=== PATIENT | male | born 1960 | race Caucasian/White ===

== ENCOUNTER 2020-07-23 06:17 | Day surgery (SDC) | payer OTHER, SELFPAY ==
[2020-07-19 10:36] VITALS: BMI 23.3
--- NOTE | 2020-07-22 08:38 | P.CONAN_ITS ---
Documented by User: Ginny Pinto 07/22/20 08:39 HPI - Anesthesia Eval Consult details Narrative: 60yo M for Colonoscopy [facility] Past Medical History Medical History Bronchitis Elevated cholesterol GERD (gastroesophageal reflux disease) History of bladder stone Hx of flexible sigmoidoscopy TIFFANI (obstructive sleep apnea) Pain in both feet Pain in both hands Surgical History Surgical History H/O colonoscopy History of bladder surgery History of orchiectomy History of prostate surgery Hx of appendectomy Hx of eye surgery Social History Social History Smoking Status: Never smoker Use of substances other than those prescribed or required for medical reasons: No Advance Directives Information Provided: No Recently lost weight without trying: No Meds Allergies Allergy/AdvReac Type Severity Reaction Status Date / Time Codeine Phosphate Allergy Severe Hallucinati Verified 07/19/20 10:51 ons meperidine [From Demerol] Allergy Severe Vomiting Verified 07/19/20 10:51 seasonal Allergy Intermediate Itchy Eyes Uncoded 07/19/20 10:51 Home Medications Medication Instructions Recorded Confirmed Type atorvastatin 1 tab PO BEDTIME 07/19/20 07/23/20 History hydrocortisone acetate 25 mg IN BID 07/19/20 07/23/20 History Exam Exam Date and Time: July 22, 2020 0838 Height,Weight and Vital Signs: Height 5 ft 6 in Weight 65.771 kg Pertinent Lab Results Pertinent Lab Results: Laboratory Tests 06/15/20 06/15/20 10:30 10:30 WBC 6.5 Hgb 14.3 Hct 41.8 L Plt Count 232 Sodium 141 Potassium 4.5 Chloride 104 BUN 11 Creatinine 0.86 Assessment and Plan Assessment Anesthesia Assessment: Chart Reviewed Documented by User: Brittany Finch 07/23/20 07:35 [facility] Past Medical History Medical History Bronchitis Elevated cholesterol GERD (gastroesophageal reflux disease) History of bladder stone Hx of flexible sigmoidoscopy TIFFANI (obstructive sleep apnea) Pain in both feet Pain in both hands Surgical History Surgical History H/O colonoscopy History of bladder surgery History of orchiectomy History of prostate surgery Hx of appendectomy Hx of eye surgery Social History Social History Smoking Status: Never smoker Use of substances other than those prescribed or required for medical reasons: No Advance Directives Information Provided: No Recently lost weight without trying: No Meds Allergies Allergy/AdvReac Type Severity Reaction Status Date / Time Codeine Phosphate Allergy Severe Hallucinati Verified 07/19/20 10:51 ons meperidine [From Demerol] Allergy Severe Vomiting Verified 07/19/20 10:51 seasonal Allergy Intermediate Itchy Eyes Uncoded 07/19/20 10:51 Home Medications Medication Instructions Recorded Confirmed Type atorvastatin 1 tab PO BEDTIME 07/19/20 07/23/20 History hydrocortisone acetate 25 mg IN BID 07/19/20 07/23/20 History Assessment and Plan Assessment Anesthesia Assessment: Anesthesia Plan Discussed and Chart Reviewed Final Anesthetic Review NPO: Yes ASA Class: I Final Preanesthetic Review: No Changes in Pt Med Stat, Meds/Allgs Chart Reviewed, Consent Obtained/Reviewed and Anes Risks/Benef Reviewed Patient Risk: Low Procedure Risk: Low Anesthetic Plan Anesthetic Plan: MAC: Disposition: Standard PACU
[2020-07-23 06:50] VITALS: BP 145/92; PULSE 86; RESP 20; TEMP 36.4; O2SAT 99
[2020-07-23] MEDS: Lactated Ringers 1,000 ML 100 ML IVCONT (06:56)
--- NOTE | 2020-07-23 07:35 | HO.ANESPROP2 ---
[facility] Past Medical History Medical History Bronchitis Elevated cholesterol GERD (gastroesophageal reflux disease) History of bladder stone Hx of flexible sigmoidoscopy TIFFANI (obstructive sleep apnea) Pain in both feet Pain in both hands Surgical History Surgical History H/O colonoscopy History of bladder surgery History of orchiectomy History of prostate surgery Hx of appendectomy Hx of eye surgery Social History Social History Smoking Status: Never smoker Use of substances other than those prescribed or required for medical reasons: No Advance Directives Information Provided: No Recently lost weight without trying: No Meds Allergies Allergy/AdvReac Type Severity Reaction Status Date / Time Codeine Phosphate Allergy Severe Hallucinati Verified 07/19/20 10:51 ons meperidine [From Demerol] Allergy Severe Vomiting Verified 07/19/20 10:51 seasonal Allergy Intermediate Itchy Eyes Uncoded 07/19/20 10:51 Home Medications Medication Instructions Recorded Confirmed Type atorvastatin 1 tab PO BEDTIME 07/19/20 07/23/20 History hydrocortisone acetate 25 mg NC BID 07/19/20 07/23/20 History Exam Exam Date and Time: July 23, 2020 0735 Height,Weight and Vital Signs: Height 5 ft 6 in Weight 65.771 kg Last Vital Signs Temp 97.6 F 07/23/20 06:50 Pulse 86 07/23/20 06:50 Resp 20 07/23/20 06:50 BP 145/92 H 07/23/20 06:50 Pulse Ox 99 07/23/20 06:50 Airway Mallampati Class: I TM Dist: >3cm Neck ROM: Full Heart: RRR Lungs: CTA
--- NOTE | 2020-07-23 07:43 | MHC.SHP ---
Pre-Procedural Eval Section A The patient is an INPATIENT: No The History & Physical has been completed within 30 days and I have reviewed it.: No Section B Chief Complaint: SCREENING Relevant Family History (Specify if Yes): Yes Relevant Social History: None Present Medications: see Short Stay Collaborative assessment Medical History: Significant History (Hyperlipemia. Bladder stone. Weak urinary stream. recurrent UTI. Bladder outlet obstruction. Foreign body in bladder. ) History of Previous Operations: Relevant previous surgery/procedure and date(s) (appendectomy testicle removal Bladder stone removal 2019 Laser of the prostate 2018 ) Allergies: Allergies Allergy/AdvReac Type Severity Reaction Status Date / Time Codeine Phosphate Allergy Severe Hallucinati Verified 07/19/20 10:51 ons meperidine [From Demerol] Allergy Severe Vomiting Verified 07/19/20 10:51 seasonal Allergy Intermediate Itchy Eyes Uncoded 07/19/20 10:51 Review of Systems Sugical H&P ROS: Negative: Constitution, Cardiovascular, Respiratory and Gastrointestinal Exam Surgical H&P Exam: Normal: Heart, Normal: Lungs, Normal: Extremities and Normal: Abdomen Plan Diagnosis/Plan: Unchanged Patient has been examined and remains a candidate for the planned procedure
--- NOTE | 2020-07-23 07:45 | PM.OP ---
Brief Operative Note Date of procedure: 07/23/20 Pre-op diagnosis: Colon cancer screening Post-op diagnosis: other (Colon polyp, hemorrhoids) Procedure: COLONOSCOPY TILL CECUM WITH BIOPSIES Consent: Indications for the procedure and potential complications of bleeding, perforation, reaction to medications and missed diagnosis were discussed with the patient and informed consent was obtained. Instrument: Olympus PCF H 190 L variable stiffness pediatric colonoscope Monitoring: Vital signs and clinical assessment, intermittent blood pressure monitoring, continuous EKG monitoring, Pulse oximetry and Carbon Dioxide monitoring were done throughout the procedure. Colon withdrawl time was 14 minutes. Procedure: The patient was placed in the left lateral decubitis position and pre-procedure medications were administered. After a digital rectal examination of the ano-rectum, the video colonoscope was inserted into the rectum and advanced through the colon to the cecum. The colonoscope was slowly withdrawn in a retrograde panoramic fashion and the colon mucosa was carefully examined including a retroflexed view of the rectum. Findings and interventions are described below. Procedure Difficulty: Colon was long and tortuous and there was loop formation. LLQ pressure applied to intubate the transverse colon Findings: Terminal Ileum: Not evaluated Cecum: Normal Ascending Colon: Normal Transverse Colon: A ? 4-5 mm polyp seen during intubation and not visualized during withdrawl. Descending Colon: Normal Sigmoid Colon: A 3-4 mm diminutive appearing polyp removed with a cold biopsy Rectum: Normal Ano-rectum: Moderate internal hemorrhoids Colon preparation: Excellent Impression and Post Procedure Diagnosis: Colonoscopy Findings: One small diminutive appearing polyp removed Moderate hemorrhoids on retroflexed exam. Plan: Await pathology results Repeat Colonoscopy interval based on path results - in 3-5 years if polyps is adenomatous and due to possibility of a missed polyp. Above findings were reviewed with the patient and colon polyps handout was given in the discharge area Surgeon: Zane Peñaloza MD Anesthesia: MAC (Dr Carlson) Non Licensed Nuclear Plant Operator: Tirso Boyer Estimated blood loss (mL): 0 Pathology: other (A Sigmoid colon polyp x 1) Condition: stable Disposition: PACU
[2020-07-23 08:29] VITALS: BP 125/80; PULSE 86; RESP 16; TEMP 36.7; O2SAT 98
[2020-07-23 08:44] VITALS: BP 136/90; PULSE 88; RESP 15; TEMP 36.8; O2SAT 99
--- NOTE | 2020-07-23 09:13 | HO.POSTANES ---
Post Anesthesia Evaluation Post Anesthesia Evaluation Vital Signs: Vital Signs Temp Pulse Resp BP Pulse Ox 07/23/20 08:44 98.2 F 88 15 136/90 H 99 07/23/20 08:29 98.1 F 86 16 125/80 98 07/23/20 06:50 97.6 F 86 20 145/92 H 99 Anesthesia: Monitored Mental Status: Awake Pain Control: Satisfactory Nausea/Vomiting: None Hydration: Adequate Anesthesia-Related Issues: No Anes. Related Issues
== END 2020-07-23 09:15 | disposition home or self-care (01) ==
PROVIDERS: PCP Nurse Practitioner Family; Visit Provider Internal Medicine Gastroenterology
PROC: 0DJD8ZZ Inspection of Lower Intestinal Tract, Via Natural or Artificial Opening Endoscopic (ICD-10-PCS; CPT 45378; principal; 2020-07-23 07:30)
DX: Z12.11 Encounter for screening for malignant neoplasm of colon (principal); K63.5 Polyp of colon; K57.30 Diverticulosis of large intestine without perforation or abscess without bleeding; K64.8 Other hemorrhoids; E78.00 Pure hypercholesterolemia, unspecified; E78.5 Hyperlipidemia, unspecified; Z79.899 Other long term (current) drug therapy; K21.9 Gastro-esophageal reflux disease without esophagitis
CPT/HCPCS: 45380; 88305; J0461

== ENCOUNTER 2021-05-24 08:15 | Outpatient (REF) | payer OTHER, SELFPAY ==
[2021-05-24 12:17] LABS: Appearance Urine CLEAR; Color Urine YELLOW; Glucose Urine UA NEG (NEG); Leukocyte Esterase Urine TRACE (NEG); Nitrite Urine NEG (NEG); Specific Gravity - Urine 1.025 (1.005-1.025); UACC Culture Trigger YES; Urine Blood NEG (NEG); Urine Ketones 5 MG/DL (NEG); Urine Protein NEG (NEG-TRACE)
[2021-05-24 12:21] LABS: Prostate Specific Antigen Scr 1.26 ng/mL (<0.05-4.0); TSH reflex Free T4 1.64 uIU/mL (0.32-4.0)
[2021-05-24 12:32] LABS: Alanine Aminotransferase 34 U/L (0-40); Albumin Level 4.7 g/dL (3.5-5.0); Alkaline Phosphatase 96 U/L (39-117); Anion Gap 15 (12-20); Aspartate Amino Transferase 39 U/L (5-37); Bilirubin Total 0.6 mg/dL (0.0-1.0); Blood Urea Nitrogen 10 mg/dL (9-16); Calcium 9.7 mg/dL (8.4-10.2); Carbon Dioxide 26 mmol/L (22-29); Chloride 104 mmol/L (96-108); Cholesterol 267 mg/dL; Estimated Glomerular Filt Rate > 60; Glucose Fasting 95 mg/dL (60-99); HDL Cholesterol 86 mg/dL; LDL Cholesterol Calculated 144 mg/dl; Potassium 4.2 mmol/L (3.3-5.1); Sodium 141 mmol/L (135-145); Total Protein 8.1 g/dL (6.5-8.0); Triglycerides 187 mg/dL
[2021-05-24 12:48] LABS: Bacteria Urine TRACE /LPF; Mucus Urine 1+ /LPF; RBC Urine 0 /HPF (0)
== END 2021-05-24 08:16 | disposition home or self-care (01) ==
LOC: HO.HMGCLDS 08:15
PROVIDERS: PCP Nurse Practitioner Family; Visit Provider Nurse Practitioner Family
DX: Z00.00 Encounter for general adult medical examination without abnormal findings (principal); Z12.5 Encounter for screening for malignant neoplasm of prostate
CPT/HCPCS: 36415; 80053; 80061; 81001; 81003; 84153; 84443; 87086

== ENCOUNTER 2021-06-14 12:17 | Outpatient (REF) | payer OTHER, SELFPAY ==
[2021-06-14 14:10] LABS: Appearance Urine CLEAR; Color Urine YELLOW; Glucose Urine UA NEG (NEG); Leukocyte Esterase Urine TRACE (NEG); Nitrite Urine NEG (NEG); PH 6.5 (5.0-8.0); UACC Culture Trigger YES; Urine Blood NEG (NEG); Urine Ketones NEG (NEG); Urine Protein NEG (NEG-TRACE)
[2021-06-14 14:40] LABS: Bacteria Urine TRACE /LPF; RBC Urine 0-2 /HPF (0); Squamous Epithelial Cell Urine 1+ /LPF
== END 2021-06-14 12:18 | disposition home or self-care (01) ==
LOC: HO.HMGCLDS 12:17
PROVIDERS: PCP Nurse Practitioner Family; Visit Provider Nurse Practitioner Family
DX: R82.90 Unspecified abnormal findings in urine (principal)
CPT/HCPCS: 81001; 81003; 87086

== ENCOUNTER 2022-06-28 10:29 | Outpatient (REF) | payer OTHER, SELFPAY ==
[2022-06-28 14:15] LABS: Appearance Urine Clear; Color Urine Yellow; Glucose Urine UA Negative (Negative); Leukocyte Esterase Urine Moderate (2+) (Negative); Nitrite Urine Negative (Negative); UMIC TRIGGER UACC YES; Urine Blood Negative (Negative); Urine Ketones Negative (Negative); Urine Protein Negative (Neg-Trace)
[2022-06-28 14:17] LABS: MANUAL DIFF FLAG NO
[2022-06-28 14:19] LABS: Basophils Absolute Auto 0.1 X10*3/uL (0.0-0.2); Basophils Percent Auto 1.2 % (0-2); Eosinophils Absolute Auto 0.3 X10*3/uL (0.0-0.4); Eosinophils Percent Auto 4.5 % (0-4); Hematocrit 43.8 % (42.0-52.0); Hemoglobin 14.7 g/dl (14.0-18.0); Imm Gran Abs Auto 0.02 X10*3/uL (0.00-0.03); Imm Gran Pct Auto 0.3 % (0.0-0.4); Lymphocytes Absolute Auto 2.5 X10*3/uL (1.2-4.9); Lymphocytes Percent Auto 36.9 % (20-40); Mean Corpuscular HGB Conc 33.6 g/dl (31.0-36.0); Mean Corpuscular Hemoglobin 29.6 pg (27.0-33.0); Mean Corpuscular Volume 88.1 fL (80.0-98.0); Mean Platelet Volume 9.7 fL (9.4-12.4); Monocytes Absolute Auto 0.7 X10*3/uL (0.1-1.2); Monocytes Percent Auto 10.5 % (2-11); Neutrophils Absolute Auto 3.1 x10*3/uL (2.0-8.3); Neutrophils Percent Auto 46.6 % (45-73); Platelet Count 251 X10*3/uL (160-400); Red Blood Count 4.97 X10*6/uL (4.60-5.80); Red Cell Distribution Width 12.1 % (11.0-16.0); White Blood Count 6.7 X10*3/uL (4.8-10.8)
[2022-06-28 14:20] LABS: Bacteria Urine None Seen (None Seen); Hyaline Casts Urine 0-2 /LPF (0-2); RBC Urine 0-2 /HPF (0-2); Squamous Epithelial Cell Urine 0-2 /HPF (0-2); UACC Culture Trigger YES; WBC Urine 21-50 /HPF (0-5)
[2022-06-28 14:44] LABS: Alanine Aminotransferase 20 U/L (0-40); Albumin Level 4.6 g/dL (3.5-5.0); Alkaline Phosphatase 68 U/L (39-117); Anion Gap 16 (12-20); Aspartate Amino Transferase 26 U/L (5-37); Bilirubin Total 0.5 mg/dL (0.0-1.0); Blood Urea Nitrogen 8 mg/dL (9-16); Calcium 9.9 mg/dL (8.4-10.2); Carbon Dioxide 28 mmol/L (22-29); Chloride 101 mmol/L (96-108); Cholesterol 234 mg/dL; Estimated Glomerular Filt Rate > 60; Glucose Fasting 94 mg/dL (60-99); HDL Cholesterol 83 mg/dL; LDL Cholesterol Calculated 132 mg/dl; Potassium 4.6 mmol/L (3.3-5.1); Sodium 140 mmol/L (135-145); Total Protein 7.6 g/dL (6.5-8.0); Triglycerides 97 mg/dL
[2022-06-28 15:06] LABS: Prostate Specific Antigen Scr 1.23 ng/mL (<0.05-4.0); TSH reflex Free T4 1.72 uIU/mL (0.32-4.0)
== END 2022-06-28 10:30 | disposition home or self-care (01) ==
LOC: HO.HMGCLDS 10:29
PROVIDERS: PCP Nurse Practitioner Family; Visit Provider Nurse Practitioner Family
DX: Z00.00 Encounter for general adult medical examination without abnormal findings (principal); Z12.5 Encounter for screening for malignant neoplasm of prostate
CPT/HCPCS: 36415; 80053; 80061; 81001; 84153; 84443; 85025; 87086

== ENCOUNTER 2022-08-16 11:41 | Emergency (ER) | payer OTHER, SELFPAY ==
--- NOTE | ~2022-08-16 | XR_ITS ---
EXAMINATION: XR CHEST CLINICAL INFORMATION: Chest pain COMPARISON: Chest x-ray 11/30/2018 TECHNIQUE: 2 views of the chest were obtained. FINDINGS: No significant abnormality is noted involving the heart, lungs, mediastinum, bony thorax or soft tissues. XR/XR chest 2V IMPRESSION: Unremarkable examination.
[2022-08-16 13:14] VITALS: BP 142/94; PULSE 109; RESP 16; TEMP 37.1; O2SAT 98; BMI 23.3
--- NOTE | 2022-08-16 13:29 | ED_ITS ---
HPI - URI/Sore Throat General Chief Complaint: Upper Respiratory Symptoms <Diogo Reynolds MD - Last Filed: 08/16/22 13:32> Stated Complaint: ? infection, coughing <Diogo Reynolds MD - Last Filed: 08/16/22 13:32> Time Seen by Provider: 08/16/22 16:01 <Diogo Reynolds MD - Last Filed: 08/16/22 13:32> Source: patient <TODD Bergman - Last Filed: 08/16/22 18:46> Mode of arrival: ambulatory <TODD Bergman - Last Filed: 08/16/22 18:46> Limitations: no limitations <TODD Bergman - Last Filed: 08/16/22 18:46> History of Present Illness HPI Narrative: 62 year old male hx of htn, pneumonia, high cholesterol presenting to the emergency department w/ fatigue, malaise, chest pressure, productive cough of thick yellow/green mucus x2 weeks. Symptoms unchanged, not improving. Reports he feels awful. Worse at night. Chest pressure to substernal region non radiating. Vague complaints of body aches. Cough very uncomfortable. Hasnt taken his temp at home. Denies sick contacts. Denies sob, green, dizziness, vision changes, weakness, nausea, diarrhea, constipaption, vomiting, abd pain. <TODD Bergman - Last Filed: 08/16/22 18:46> Related Data Home Medications: Home Medications Medication Instructions Recorded Confirmed hydrocortisone acetate 25 mg 25 mg [place] BID PRN 05/17/21 05/17/21 rectal suppository Previous Rx's Medication Instructions Recorded atorvastatin 20 mg tablet 20 mg PO DAILY #90 tabs 03/15/22 lisinopril 2.5 mg tablet 2.5 mg PO DAILY 30 days #30 tabs 05/18/22 albuterol sulfate 90 mcg/actuation 2 inh inhalation Q4-6H PRN 08/16/22 breath activated powder inhaler shortness of breath or wheezing #1 ea azithromycin 250 mg tablet See Rx Instructions PO .COMPLEX #6 08/16/22 tabs prednisone 20 mg tablet 40 mg PO DAILY 5 days #10 tabs 08/16/22 <Diogo Reynolds MD - Last Filed: 08/16/22 13:32> Allergies/Adverse Reactions: Allergies Allergy/AdvReac Type Severity Reaction Status Date / Time Codeine Phosphate Allergy Severe Hallucinati Verified 05/18/22 16:59 ons meperidine [From Demerol] Allergy Severe Vomiting Verified 05/18/22 16:59 seasonal Allergy Intermediate Itchy Eyes Uncoded 05/18/22 16:59 <Diogo Reynolds MD - Last Filed: 08/16/22 13:32> Review of Systems Review of Systems: Constitutional : No Weight loss, No Fever, No Chills, + Fatigue, + Malaise ENT/Mouth : No sore throat, No Rhinorrhea Eyes: No Eye Pain, No Swelling, No Redness Cardiovascular : + Chest Pain, No SOB, No Dyspnea on Exertion, No Orthopnea, No Edema, No Palpitations Respiratory : + Cough, + Sputum, No Wheezing Gastrointestinal : No Nausea, No Vomiting, No Diarrhea, No Constipation, No abdominal Pain, No Hematochezia, No Melena Genitourinary : No Dysuria, No Urinary Frequency, No Hematuria, Musculoskeletal : No joint pain, + Myalgias, No Joint Swelling Skin : No Skin Lesions, No rash Neuro : No Weakness, No Numbness, No Dizziness, No Headache Psych : No Anxiety/Panic, No Depression All other systems reviewed and are negative <TODD Bergman - Last Filed: 08/16/22 18:46> Yes all other systems are reviewed and are negative <TODD Bergman - Last Filed: 08/16/22 18:46> [facility] Past Medical History Attestation statement: The following information was validated with the patient. <TODD Bergman - Last Filed: 08/16/22 18:46> Source: old records reviewed and nursing notes reviewed <TODD Bergman - Last Filed: 08/16/22 18:46> Medical History: Medical History Bronchitis Elevated cholesterol GERD (gastroesophageal reflux disease) History of bladder stone Hx of flexible sigmoidoscopy TIFFANI (obstructive sleep apnea) Pain in both feet Pain in both hands <Diogo Reynolds MD - Last Filed: 08/16/22 13:32> Surgical History: Surgical History H/O colonoscopy History of bladder surgery History of orchiectomy History of prostate surgery Hx of appendectomy Hx of eye surgery <Diogo Reynolds MD - Last Filed: 08/16/22 13:32> Family History Family History: Family History Brother Substance use disorder Mental health disorder <Diogo Reynolds MD - Last Filed: 08/16/22 13:32> Social History Social History: Social History Housing: House Patient Tobacco Use Status: Never used Tobacco e-Cigarette/Vaping Use: Never Used Second Hand Smoke Exposure: No Advance Directives: No Advance Directives Information Provided: No service: No Current occupational status: retired Cognitive needs: No Hearing needs: No Vision needs: No <Diogo Reynolds MD - Last Filed: 08/16/22 13:32> Physical Exam Vital Signs: Vital Signs: Last Vital Signs Temp 98.8 F 08/16/22 13:14 Pulse 109 H 08/16/22 13:14 Resp 16 08/16/22 13:14 BP 142/94 H 08/16/22 13:14 Pulse Ox 98 08/16/22 13:14 O2 Del Method 08/16/22 13:14 BMI result Body Mass Index 23.3 <Diogo Reynolds MD - Last Filed: 08/16/22 13:32> Vital Signs: Last Vital Signs Temp 98.8 F 08/16/22 13:14 Pulse 109 H 08/16/22 13:14 Resp 16 08/16/22 13:14 BP 142/94 H 08/16/22 13:14 Pulse Ox 98 08/16/22 13:14 O2 Del Method 08/16/22 13:14 BMI result Body Mass Index 23.3 slightly tachycardic <TODD Bergman - Last Filed: 08/16/22 18:46> Appearance: Alert.? Oriented X3.? No acute distress.? Head: Normocephalic, atraumatic, no step-offs or deformities Eyes: Pupils equal, round and reactive to light.? Neck: Normal inspection.? Neck supple.? CVS: Normal heart rate and rhythm.? Pulses normal.? Respiratory: No respiratory distress.? Breath sounds w/ diffuse rhonchi .? Abdomen: Soft and nontender.? Skin: Skin warm and dry.? Normal skin color.? Normal skin turgor.? Extremities: No lower extremity edema.? No calf ttp, negative trae. 5/5 strength to bilateral upper and lower extremities Neuro: Oriented X 3.? No motor deficit.? No sensory deficit. CN 2-12 intact <TODD Bergman - Last Filed: 08/16/22 18:46> Course Course Course Narrative: RME: 62-year-old male history of pneumonia, high cholesterol, hypertension who presents emergency department for evaluation of 2 weeks of cough productive of thick yellow mucus and chills. He has also felt short of breath for 2 weeks. He states that since starting lisinopril he has had a cough but now the cough is worse. Vital signs revealed an elevated blood pressure 142/94 elevated pulse of 109. O2 sat and temperature were normal. Patient is awake alert no distress, HEENT exam was unremarkable, lungs revealed diffuse rhonchi, no wheezing rales, heart tachycardia with normal S1-S2, abdomen soft nontender extremities normal neurologic exam nonfocal. I ordered a chest x-ray two view, CBC, CMP, COVID-19 influenza. <Diogo Reynolds MD - Last Filed: 08/16/22 13:32> Reevaluation(s) Reevaluation #1: CBC w/ leukopenia suspected secondary to viral infection, monocyte predominance, NA of 131 will give 1 L IVF and recheck, no other electrolyte abnormalities. Influenza positive, sx > 48 hrs not tamiflu candidate. CXR wnl. Labs were obtained from triage. I ordered EKG and trop add on. <TODD Bergman - Last Filed: 08/16/22 18:46> Time: 16:09 <TODD Bergman - Last Filed: 08/16/22 18:46> Reevaluation #2: Repeat sodium 133, improvement after IV fluids. Patient feeling well, no new complaints. Not complaining of chest pain he did have a negative troponin and nonischemic EKG. Unlikely cardiac related chest pain. Chest pain likely secondary to cough. Will discharge patient home with prednisone, Z-Jose, albuterol inhaler. At this time I feel comfortable discharge home with prompt PCP follow-up. <TODD Bergman - Last Filed: 08/16/22 18:46> Time: 18:45 <TODD Bergman - Last Filed: 08/16/22 18:46> Medications Administered Discontinued Medications Generic Name Dose Route Start Last Admin Trade Name Freq PRN Reason Stop Dose Admin Sodium Chloride 1,000 mls @ 999 mls/hr 08/16/22 16:15 08/16/22 17:52 Ns IV 08/16/22 17:15 Infused .Q1H1M LINDA Infusion <Diogo Reynolds MD - Last Filed: 08/16/22 13:32> Medications Administered Discontinued Medications Generic Name Dose Route Start Last Admin Trade Name Freq PRN Reason Stop Dose Admin Sodium Chloride 1,000 mls @ 999 mls/hr 08/16/22 16:15 08/16/22 17:52 Ns IV 08/16/22 17:15 Infused .Q1H1M LINDA Infusion <TODD Bergman - Last Filed: 08/16/22 18:46> MDM - URI/Sore Throat MDM Narrative Medical decision making narrative: 1602 62 yo M presents w/ productive cough, fatigue, malaise, chest pressure X2 weeks worsening. PE w/ diffuse rhonchi, rapid regular rhythm, negative trae b/l. 98% on RA Likely viral infection or bacterial bronchitis based off symptom duration. Unlikley PNA, PE, ACS. Plan- basic labs, xray, ekg, viral panel <TODD Bergman - Last Filed: 08/16/22 18:46> Medical Records Attestation: I reviewed the patient's medical records. <TODD Bergman - Last Filed: 08/16/22 18:46> Lab Data Attestation: I reviewed the patient's lab results. <TODD Bergman - Last Filed: 08/16/22 18:46> Result diagrams: : 08/16/22 13:46 08/16/22 17:42 <Diogo Reynolds MD - Last Filed: 08/16/22 13:32> Labs: Lab Results 08/16/22 08/16/22 08/16/22 Range/Units 13:46 13:46 13:46 WBC 4.2 L (4.8-10.8) X10*3/uL RBC 4.40 L (4.60-5.80) X10*6/uL Hgb 13.0 L (14.0-18.0) g/dl Hct 38.2 L (42.0-52.0) % MCV 86.8 (80.0-98.0) fL MCH 29.5 (27.0-33.0) pg MCHC 34.0 (31.0-36.0) g/dl RDW 11.9 (11.0-16.0) % Plt Count 164 D (160-400) X10*3/uL MPV 8.8 L (9.4-12.4) fL Immature Gran % (Auto) 0.2 (0.0-0.4) % Neut % (Auto) 66.0 (45-73) % Lymph % (Auto) 13.5 L (20-40) % Calhoun % (Auto) 17.7 H (2-11) % Eos % (Auto) 1.4 (0-4) % Baso % (Auto) 1.2 (0-2) % Lymph # (Auto) 0.6 L (1.2-4.9) X10*3/uL Calhoun # (Auto) 0.8 (0.1-1.2) X10*3/uL Eos # (Auto) 0.1 (0.0-0.4) X10*3/uL Baso # (Auto) 0.1 (0.0-0.2) X10*3/uL Abs Immat Gran (auto) 0.01 (0.00-0.03) X10*3/uL Absolute Neuts (auto) 2.8 (2.0-8.3) x10*3/uL Absolute Nucleated RBC 0.000 (0.0-0.012) X10*3/uL Nucleated RBC % (auto) 0.0 (0.0-0.2) /100WBC Sodium 131 L (135-145) mmol/L Potassium 3.6 D (3.3-5.1) mmol/L Chloride 95 L (96-108) mmol/L Carbon Dioxide 27 (22-29) mmol/L Anion Gap 13 (12-20) BUN 5 L (9-16) mg/dL Creatinine 0.85 (0.5-1.4) mg/dL Estim Creat Clear Calc 81.3 Estimated GFR > 60 Random Glucose 114 (60-115) mg/dL Calcium 9.6 (8.4-10.2) mg/dL Total Bilirubin 0.7 (0.0-1.0) mg/dL AST 26 (5-37) U/L ALT 19 (0-40) U/L Alkaline Phosphatase 86 (39-117) U/L Troponin I High Sens (<3.5-35.0) ng/L Total Protein 7.2 (6.5-8.0) g/dL Albumin 4.4 (3.5-5.0) g/dL COVID-19 (ELISSA) (Negative) COVID-19 Clin Com Influenza Type A (JAMILAH) Positive A (Negative) Influenza Type B (JAMILAH) Negative (Negative) Influenza A & B Note See Note 08/16/22 08/16/22 08/16/22 Range/Units 13:46 13:46 17:42 WBC (4.8-10.8) X10*3/uL RBC (4.60-5.80) X10*6/uL Hgb (14.0-18.0) g/dl Hct (42.0-52.0) % MCV (80.0-98.0) fL MCH (27.0-33.0) pg MCHC (31.0-36.0) g/dl RDW (11.0-16.0) % Plt Count (160-400) X10*3/uL MPV (9.4-12.4) fL Immature Gran % (Auto) (0.0-0.4) % Neut % (Auto) (45-73) % Lymph % (Auto) (20-40) % Calhoun % (Auto) (2-11) % Eos % (Auto) (0-4) % Baso % (Auto) (0-2) % Lymph # (Auto) (1.2-4.9) X10*3/uL Calhoun # (Auto) (0.1-1.2) X10*3/uL Eos # (Auto) (0.0-0.4) X10*3/uL Baso # (Auto) (0.0-0.2) X10*3/uL Abs Immat Gran (auto) (0.00-0.03) X10*3/uL Absolute Neuts (auto) (2.0-8.3) x10*3/uL Absolute Nucleated RBC (0.0-0.012) X10*3/uL Nucleated RBC % (auto) (0.0-0.2) /100WBC Sodium 133 L (135-145) mmol/L Potassium 3.7 (3.3-5.1) mmol/L Chloride 98 (96-108) mmol/L Carbon Dioxide 26 (22-29) mmol/L Anion Gap 13 (12-20) BUN 5 L (9-16) mg/dL Creatinine 0.78 (0.5-1.4) mg/dL Estim Creat Clear Calc 88.6 Estimated GFR > 60 Random Glucose 91 (60-115) mg/dL Calcium 8.9 D (8.4-10.2) mg/dL Total Bilirubin (0.0-1.0) mg/dL AST (5-37) U/L ALT (0-40) U/L Alkaline Phosphatase (39-117) U/L Troponin I High Sens < 3.5 (<3.5-35.0) ng/L Total Protein (6.5-8.0) g/dL Albumin (3.5-5.0) g/dL COVID-19 (ELISSA) Negative (Negative) COVID-19 Clin Com See Note Influenza Type A (JAMILAH) (Negative) Influenza Type B (JAMILAH) (Negative) Influenza A & B Note <Diogo Reynolds MD - Last Filed: 08/16/22 13:32> Lab Results 08/16/22 08/16/22 08/16/22 Range/Units 13:46 13:46 13:46 WBC 4.2 L (4.8-10.8) X10*3/uL RBC 4.40 L (4.60-5.80) X10*6/uL Hgb 13.0 L (14.0-18.0) g/dl Hct 38.2 L (42.0-52.0) % MCV 86.8 (80.0-98.0) fL MCH 29.5 (27.0-33.0) pg MCHC 34.0 (31.0-36.0) g/dl RDW 11.9 (11.0-16.0) % Plt Count 164 D (160-400) X10*3/uL MPV 8.8 L (9.4-12.4) fL Immature Gran % (Auto) 0.2 (0.0-0.4) % Neut % (Auto) 66.0 (45-73) % Lymph % (Auto) 13.5 L (20-40) % Calhoun % (Auto) 17.7 H (2-11) % Eos % (Auto) 1.4 (0-4) % Baso % (Auto) 1.2 (0-2) % Lymph # (Auto) 0.6 L (1.2-4.9) X10*3/uL Calhoun # (Auto) 0.8 (0.1-1.2) X10*3/uL Eos # (Auto) 0.1 (0.0-0.4) X10*3/uL Baso # (Auto) 0.1 (0.0-0.2) X10*3/uL Abs Immat Gran (auto) 0.01 (0.00-0.03) X10*3/uL Absolute Neuts (auto) 2.8 (2.0-8.3) x10*3/uL Absolute Nucleated RBC 0.000 (0.0-0.012) X10*3/uL Nucleated RBC % (auto) 0.0 (0.0-0.2) /100WBC Sodium 131 L (135-145) mmol/L Potassium 3.6 D (3.3-5.1) mmol/L Chloride 95 L (96-108) mmol/L Carbon Dioxide 27 (22-29) mmol/L Anion Gap 13 (12-20) BUN 5 L (9-16) mg/dL Creatinine 0.85 (0.5-1.4) mg/dL Estim Creat Clear Calc 81.3 Estimated GFR > 60 Random Glucose 114 (60-115) mg/dL Calcium 9.6 (8.4-10.2) mg/dL Total Bilirubin 0.7 (0.0-1.0) mg/dL AST 26 (5-37) U/L ALT 19 (0-40) U/L Alkaline Phosphatase 86 (39-117) U/L Troponin I High Sens (<3.5-35.0) ng/L Total Protein 7.2 (6.5-8.0) g/dL Albumin 4.4 (3.5-5.0) g/dL COVID-19 (ELISSA) (Negative) COVID-19 Clin Com Influenza Type A (JAMILAH) Positive A (Negative) Influenza Type B (JAMILAH) Negative (Negative) Influenza A & B Note See Note 08/16/22 08/16/22 08/16/22 Range/Units 13:46 13:46 17:42 WBC (4.8-10.8) X10*3/uL RBC (4.60-5.80) X10*6/uL Hgb (14.0-18.0) g/dl Hct (42.0-52.0) % MCV (80.0-98.0) fL MCH (27.0-33.0) pg MCHC (31.0-36.0) g/dl RDW (11.0-16.0) % Plt Count (160-400) X10*3/uL MPV (9.4-12.4) fL Immature Gran % (Auto) (0.0-0.4) % Neut % (Auto) (45-73) % Lymph % (Auto) (20-40) % Calhoun % (Auto) (2-11) % Eos % (Auto) (0-4) % Baso % (Auto) (0-2) % Lymph # (Auto) (1.2-4.9) X10*3/uL Calhoun # (Auto) (0.1-1.2) X10*3/uL Eos # (Auto) (0.0-0.4) X10*3/uL Baso # (Auto) (0.0-0.2) X10*3/uL Abs Immat Gran (auto) (0.00-0.03) X10*3/uL Absolute Neuts (auto) (2.0-8.3) x10*3/uL Absolute Nucleated RBC (0.0-0.012) X10*3/uL Nucleated RBC % (auto) (0.0-0.2) /100WBC Sodium 133 L (135-145) mmol/L Potassium 3.7 (3.3-5.1) mmol/L Chloride 98 (96-108) mmol/L Carbon Dioxide 26 (22-29) mmol/L Anion Gap 13 (12-20) BUN 5 L (9-16) mg/dL Creatinine 0.78 (0.5-1.4) mg/dL Estim Creat Clear Calc 88.6 Estimated GFR > 60 Random Glucose 91 (60-115) mg/dL Calcium 8.9 D (8.4-10.2) mg/dL Total Bilirubin (0.0-1.0) mg/dL AST (5-37) U/L ALT (0-40) U/L Alkaline Phosphatase (39-117) U/L Troponin I High Sens < 3.5 (<3.5-35.0) ng/L Total Protein (6.5-8.0) g/dL Albumin (3.5-5.0) g/dL COVID-19 (ELISSA) Negative (Negative) COVID-19 Clin Com See Note Influenza Type A (JAMILAH) (Negative) Influenza Type B (JAMILAH) (Negative) Influenza A & B Note <TODD Bergman - Last Filed: 08/16/22 18:46> Critical Care Time Critical Care Time Critical Care Time: No <TODD Bergman - Last Filed: 08/16/22 18:46> Discharge Plan Discharge Clinical Impression: Influenza, Bronchitis <Diogo Reynolds MD - Last Filed: 08/16/22 13:32> Patient Disposition: Home, Self-Care <Diogo Reynolds MD - Last Filed: 08/16/22 13:32> Instructions: Influenza (ED), Acute Bronchitis (ED) <Diogo Reynolds MD - Last Filed: 08/16/22 13:32> Additional Instructions: Take your medications as prescribed. If you were prescribed antibiotics today, it is important that you take your medication to their entirety, do not skip any doses, do not finish them early. Follow-up with your primary care provider this week. Return to the emergency department with new or worsening symptoms. Chest pain, shortness of breath, headache, dizziness, vision changes, weakness, fevers, chills, ect In case of emergency call 911 You are contagious! Practice good hygiene XR/XR chest 2V IMPRESSION: Unremarkable examination. <Diogo Reynolds MD - Last Filed: 08/16/22 13:32> Prescriptions: New azithromycin 250 mg tablet See Rx Instructions .ROUTE .COMPLEX Qty: 6 0RF Rx Instructions: For 250 mg dose pack: take 500 mg today (day 1), then 250 mg for 4 days (days 2-5) prednisone 20 mg tablet 40 mg PO DAILY 5 Days Qty: 10 0RF albuterol sulfate 90 mcg/actuation aerosol powdr breath activated 2 inh inhalation Q4-6H PRN (Reason: shortness of breath or wheezing) Qty: 1 0RF No Action atorvastatin 20 mg tablet 20 mg PO DAILY Qty: 90 1RF hydrocortisone acetate 25 mg suppository 25 mg [place] BID PRN lisinopril 2.5 mg tablet 2.5 mg PO DAILY 30 Days Qty: 30 3RF <Diogo Reynolds MD - Last Filed: 08/16/22 13:32> Referrals: [place] Ambriz, [employer]- [Primary Care Provider] - 2 days <Diogo Reynolds MD - Last Filed: 08/16/22 13:32> Stand Alone Forms: Work/School Release <Digoo Reynolds MD - Last Filed: 08/16/22 13:32>
[2022-08-16 13:51] LABS: MANUAL DIFF FLAG NO
[2022-08-16 13:52] LABS: Basophils Absolute Auto 0.1 X10*3/uL (0.0-0.2); Basophils Percent Auto 1.2 % (0-2); Eosinophils Absolute Auto 0.1 X10*3/uL (0.0-0.4); Eosinophils Percent Auto 1.4 % (0-4); Hematocrit 38.2 % (42.0-52.0); Imm Gran Abs Auto 0.01 X10*3/uL (0.00-0.03); Imm Gran Pct Auto 0.2 % (0.0-0.4); Lymphocytes Absolute Auto 0.6 X10*3/uL (1.2-4.9); Lymphocytes Percent Auto 13.5 % (20-40); Mean Corpuscular Hemoglobin 29.5 pg (27.0-33.0); Mean Corpuscular Volume 86.8 fL (80.0-98.0); Mean Platelet Volume 8.8 fL (9.4-12.4); Monocytes Absolute Auto 0.8 X10*3/uL (0.1-1.2); Monocytes Percent Auto 17.7 % (2-11); Neutrophils Absolute Auto 2.8 x10*3/uL (2.0-8.3); Platelet Count 164 X10*3/uL (160-400); Red Cell Distribution Width 11.9 % (11.0-16.0); White Blood Count 4.2 X10*3/uL (4.8-10.8)
[2022-08-16 14:07] LABS: COVID-19 Test Negative (Negative); IDNOW Serial# 16C4AD1C
[2022-08-16 14:08] LABS: IDNOW Serial# BCCEAD1C; Influenza A Positive (Negative); Influenza B2 Negative (Negative)
[2022-08-16 14:09] LABS: Alanine Aminotransferase 19 U/L (0-40); Albumin Level 4.4 g/dL (3.5-5.0); Alkaline Phosphatase 86 U/L (39-117); Anion Gap 13 (12-20); Aspartate Amino Transferase 26 U/L (5-37); Bilirubin Total 0.7 mg/dL (0.0-1.0); Blood Urea Nitrogen 5 mg/dL (9-16); Calcium 9.6 mg/dL (8.4-10.2); Carbon Dioxide 27 mmol/L (22-29); Chloride 95 mmol/L (96-108); Creatinine Clr Calc Pharmacy 81.3; Estimated Glomerular Filt Rate > 60; Glucose Random 114 mg/dL (60-115); Potassium 3.6 mmol/L (3.3-5.1); Sodium 131 mmol/L (135-145); Total Protein 7.2 g/dL (6.5-8.0)
--- NOTE | 2022-08-16 16:06 | ECG_ITS ---
Test Reason : CP Blood Pressure : / mmHG Vent. Rate : 087 BPM Atrial Rate : 087 BPM P-R Int : 148 ms QRS Dur : 072 ms QT Int : 342 ms P-R-T Axes : 049 027 042 degrees QTc Int : 411 ms Normal sinus rhythm Normal ECG When compared with ECG of 30-NOV-2018 14:41, No significant change was found Referred By: Jennifer Mendez Electronically Signed By:Wm Caceres
[2022-08-16] MEDS: 0.9 % Sodium Chloride 1,000 ML 999 ML IV (16:41)
[2022-08-16 17:04] LABS: Troponin-I High Sensitivity < 3.5 ng/L (<3.5-35.0)
[2022-08-16 18:07] LABS: Anion Gap 13 (12-20); Blood Urea Nitrogen 5 mg/dL (9-16); Calcium 8.9 mg/dL (8.4-10.2); Carbon Dioxide 26 mmol/L (22-29); Chloride 98 mmol/L (96-108); Creatinine Clr Calc Pharmacy 88.6; Estimated Glomerular Filt Rate > 60; Glucose Random 91 mg/dL (60-115); Potassium 3.7 mmol/L (3.3-5.1); Sodium 133 mmol/L (135-145)
--- NOTE | 2022-08-16 18:56 | PC.NURSE ---
Discharge instructions reviewed with pt. Pt verbalizes understanding.
== END 2022-08-16 18:56 | disposition home or self-care (01) ==
PROVIDERS: Emergency Medicine Emergency Medical Services; Physician Assistant; Emergency Provider Internal Medicine; PCP Nurse Practitioner Family
DX: J11.1 Influenza due to unidentified influenza virus with other respiratory manifestations (principal); J40 Bronchitis, not specified as acute or chronic; I10 Essential (primary) hypertension; E78.5 Hyperlipidemia, unspecified; Z79.02 Long term (current) use of antithrombotics/antiplatelets; Z79.899 Other long term (current) drug therapy; Z20.822 Contact with and (suspected) exposure to COVID-19
CPT/HCPCS: 36415; 71046; 80048; 80053; 84484; 85025; 87502; 87635; 93005; 96360; 99284

== ENCOUNTER 2022-11-17 12:38 | Outpatient (REF) | payer OTHER, SELFPAY ==
[2022-11-17 14:03] LABS: MANUAL DIFF FLAG NO
[2022-11-17 14:14] LABS: Appearance Urine Clear; Color Urine Yellow; Glucose Urine UA Negative (Negative); Leukocyte Esterase Urine Trace (Negative); Nitrite Urine Negative (Negative); PH 7.5 (5.0-9.0); UMIC TRIGGER UACC YES; Urine Blood Negative (Negative); Urine Ketones Negative (Negative); Urine Protein Negative (Neg-Trace)
[2022-11-17 14:20] LABS: Bacteria Urine None Seen (None Seen); Hyaline Casts Urine 0-2 /LPF (0-2); RBC Urine 0-2 /HPF (0-2); Squamous Epithelial Cell Urine 0-2 /HPF (0-2); WBC Urine 0-5 /HPF (0-5)
[2022-11-17 14:38] LABS: Basophils Absolute Auto 0.1 X10*3/uL (0.0-0.2); Basophils Percent Auto 1.4 % (0-2); Eosinophils Absolute Auto 0.3 X10*3/uL (0.0-0.4); Eosinophils Percent Auto 4.6 % (0-4); Hematocrit 43.7 % (42.0-52.0); Hemoglobin 14.6 g/dl (14.0-18.0); Imm Gran Abs Auto 0.02 X10*3/uL (0.00-0.03); Imm Gran Pct Auto 0.3 % (0.0-0.4); Lymphocytes Absolute Auto 2.4 X10*3/uL (1.2-4.9); Lymphocytes Percent Auto 33.7 % (20-40); Mean Corpuscular HGB Conc 33.4 g/dl (31.0-36.0); Mean Corpuscular Hemoglobin 29.3 pg (27.0-33.0); Mean Corpuscular Volume 87.8 fL (80.0-98.0); Mean Platelet Volume 10.2 fL (9.4-12.4); Monocytes Absolute Auto 0.8 X10*3/uL (0.1-1.2); Monocytes Percent Auto 10.8 % (2-11); Neutrophils Absolute Auto 3.6 x10*3/uL (2.0-8.3); Neutrophils Percent Auto 49.2 % (45-73); Platelet Count 227 X10*3/uL (160-400); Red Blood Count 4.98 X10*6/uL (4.60-5.80); Red Cell Distribution Width 12.3 % (11.0-16.0); White Blood Count 7.2 X10*3/uL (4.8-10.8)
[2022-11-17 15:13] LABS: Alanine Aminotransferase 26 U/L (0-40); Albumin Level 4.7 g/dL (3.5-5.0); Alkaline Phosphatase 98 U/L (39-117); Anion Gap 16 (12-20); Aspartate Amino Transferase 29 U/L (5-37); Bilirubin Total 0.6 mg/dL (0.0-1.0); Blood Urea Nitrogen 8 mg/dL (9-16); Calcium 9.8 mg/dL (8.4-10.2); Carbon Dioxide 27 mmol/L (22-29); Chloride 102 mmol/L (96-108); Estimated Glomerular Filt Rate > 60; Glucose Fasting 95 mg/dL (60-99); Potassium 4.5 mmol/L (3.3-5.1); Sodium 140 mmol/L (135-145); Total Protein 7.9 g/dL (6.5-8.0)
[2022-11-17 15:14] LABS: TSH reflex Free T4 1.54 uIU/mL (0.32-4.0)
== END 2022-11-17 12:39 | disposition home or self-care (01) ==
LOC: HO.HMGCLDS 12:38
PROVIDERS: PCP Nurse Practitioner Family; Visit Provider Nurse Practitioner Family
DX: I10 Essential (primary) hypertension (principal)
CPT/HCPCS: 36415; 80053; 81001; 84443; 85025

== ENCOUNTER 2023-02-19 10:30 | Outpatient (REF) | payer OTHER, SELFPAY ==
[2023-02-19 11:15] LABS: MANUAL DIFF FLAG NO
[2023-02-19 11:29] LABS: Basophils Absolute Auto 0.1 X10*3/uL (0.0-0.2); Basophils Percent Auto 1.3 % (0-2); Eosinophils Absolute Auto 0.2 X10*3/uL (0.0-0.4); Hematocrit 45.6 % (42.0-52.0); Hemoglobin 15.4 g/dl (14.0-18.0); Imm Gran Abs Auto 0.01 X10*3/uL (0.00-0.03); Imm Gran Pct Auto 0.2 % (0.0-0.4); Lymphocytes Absolute Auto 2.1 X10*3/uL (1.2-4.9); Lymphocytes Percent Auto 32.6 % (20-40); Mean Corpuscular HGB Conc 33.8 g/dl (31.0-36.0); Mean Corpuscular Volume 88.9 fL (80.0-98.0); Mean Platelet Volume 9.7 fL (9.4-12.4); Monocytes Absolute Auto 0.6 X10*3/uL (0.1-1.2); Monocytes Percent Auto 9.5 % (2-11); Neutrophils Absolute Auto 3.4 x10*3/uL (2.0-8.3); Neutrophils Percent Auto 53.4 % (45-73); Platelet Count 234 X10*3/uL (160-400); Red Blood Count 5.13 X10*6/uL (4.60-5.80); Red Cell Distribution Width 12.2 % (11.0-16.0); White Blood Count 6.3 X10*3/uL (4.8-10.8)
[2023-02-19 11:57] LABS: Alanine Aminotransferase 22 U/L (0-40); Albumin Level 4.9 g/dL (3.5-5.0); Alkaline Phosphatase 83 U/L (39-117); Anion Gap 14 (12-20); Aspartate Amino Transferase 28 U/L (5-37); Bilirubin Total 0.7 mg/dL (0.0-1.0); Blood Urea Nitrogen 7 mg/dL (9-16); Calcium 10.3 mg/dL (8.4-10.2); Carbon Dioxide 28 mmol/L (22-29); Chloride 104 mmol/L (96-108); Cholesterol 260 mg/dL; Estimated Glomerular Filt Rate > 60; Glucose Fasting 93 mg/dL (60-99); HDL Cholesterol 92 mg/dL; LDL Cholesterol Calculated 148 mg/dl; Potassium 4.8 mmol/L (3.3-5.1); Sodium 141 mmol/L (135-145); Total Protein 8.3 g/dL (6.5-8.0); Triglycerides 104 mg/dL
[2023-02-19 12:20] LABS: TSH reflex Free T4 1.63 uIU/mL (0.32-4.0)
[2023-02-19 14:03] LABS: Appearance Urine Clear; Color Urine Yellow; Glucose Urine UA Negative (Negative); Leukocyte Esterase Urine Moderate (2+) (Negative); Nitrite Urine Negative (Negative); PH 5.5 (5.0-9.0); Specific Gravity - Urine 1.015 (1.005-1.025); UMIC TRIGGER UACC YES; Urine Blood Negative (Negative); Urine Ketones Negative (Negative); Urine Protein Negative (Neg-Trace)
[2023-02-19 14:09] LABS: Bacteria Urine Trace (None Seen); Hyaline Casts Urine 0-2 /LPF (0-2); RBC Urine 0-2 /HPF (0-2); Squamous Epithelial Cell Urine 0-2 /HPF (0-2); UACC Culture Trigger YES
== END 2023-02-19 10:31 | disposition home or self-care (01) ==
LOC: HO.HMGCLDS 10:30
PROVIDERS: PCP Nurse Practitioner Family; Visit Provider Nurse Practitioner Family
DX: I10 Essential (primary) hypertension (principal); E83.52 Hypercalcemia; R82.90 Unspecified abnormal findings in urine
CPT/HCPCS: 36415; 80053; 80061; 81001; 81003; 84443; 85025; 87086; 87088; 87186

== ENCOUNTER 2023-02-21 11:42 | Outpatient (REF) | payer OTHER, SELFPAY ==
[2023-02-21 14:06] LABS: Appearance Urine Clear; Color Urine Yellow; Glucose Urine UA Negative (Negative); Leukocyte Esterase Urine Small (1+) (Negative); Nitrite Urine Negative (Negative); UMIC TRIGGER UACC YES; Urine Blood Negative (Negative); Urine Ketones Negative (Negative); Urine Protein Negative (Neg-Trace)
[2023-02-21 14:09] LABS: Bacteria Urine None Seen (None Seen); Hyaline Casts Urine 0-2 /LPF (0-2); RBC Urine 0-2 /HPF (0-2); Squamous Epithelial Cell Urine 0-2 /HPF (0-2); UACC Culture Trigger YES
[2023-02-21 14:39] LABS: Vitamin D 25-OH Total 13.4 ng/mL (>30)
[2023-02-22 22:24] LABS: Calcium (PTHI) 10.1 mg/dL (8.6-10.3); PTHI 47 pg/mL (16-77)
[2023-02-24 22:04] LABS: Calcium, Ionized 5.1 mg/dL (4.7-5.5)
== END 2023-02-21 11:43 | disposition home or self-care (01) ==
LOC: HO.HMGCLDS 11:42
PROVIDERS: PCP Nurse Practitioner Family; Visit Provider Nurse Practitioner Family
DX: E83.52 Hypercalcemia (principal); I10 Essential (primary) hypertension; R82.90 Unspecified abnormal findings in urine
CPT/HCPCS: 36415; 81001; 81003; 82306; 82330; 83970; 87086; 87088; 87186

== ENCOUNTER 2023-06-16 09:25 | Outpatient (REF) | payer OTHER, SELFPAY ==
[2023-06-16 11:45] LABS: Alanine Aminotransferase 29 U/L (0-40); Albumin Level 4.3 g/dL (3.5-5.0); Alkaline Phosphatase 75 U/L (39-117); Anion Gap 13 (12-20); Aspartate Amino Transferase 38 U/L (5-37); Bilirubin Total 0.4 mg/dL (0.0-1.0); Blood Urea Nitrogen 8 mg/dL (9-16); Calcium 9.8 mg/dL (8.4-10.2); Carbon Dioxide 29 mmol/L (22-29); Chloride 103 mmol/L (96-108); Cholesterol 205 mg/dL (<200); Estimated Glomerular Filt Rate > 60; Glucose Fasting 94 mg/dL (60-99); HDL Cholesterol 78 mg/dL (>40); LDL Cholesterol Calculated 107 mg/dL (<100); Potassium 4.4 mmol/L (3.3-5.1); Sodium 141 mmol/L (135-145); Total Protein 7.3 g/dL (6.5-8.0); Triglycerides 101 mg/dL (<150)
== END 2023-06-16 09:26 | disposition home or self-care (01) ==
LOC: HO.HMGCLDS 09:25
PROVIDERS: PCP Nurse Practitioner Family; Visit Provider Nurse Practitioner Family
DX: E78.5 Hyperlipidemia, unspecified (principal)
CPT/HCPCS: 36415; 80053; 80061

== ENCOUNTER 2023-06-19 08:50 | Outpatient (AMB) | payer OTHER, SELFPAY ==
--- NOTE | 2023-06-19 08:54 | A.OFFPC_ITS ---
Vital Signs 06/19/23 08:55 Height 5 ft 6 in Weight 148 lb BMI 23.9 BP 130/80 Blood Pressure Location Lt brachial Position Sitting Pulse 77 Pulse Source Pulse Oximeter Pulse Oximetry (%) 97 Oxygen Delivery Method Room Air Intake Visit Reasons: PE Intake Note: Pt is here today for PE. Allergies meperidine [From Demerol] Allergy (Severe, Verified 06/19/23 08:56) Vomiting Seasonal Allergies Allergy (Intermediate, Verified 06/19/23 08:56) Itchy Eyes codeine Adverse Reaction (Severe, Verified 06/19/23 08:56) Hallucinations Medication List - Last Reconciled 06/19/23 by THEE Ribeiro albuterol sulfate 90 mcg/actuation 2 inhalations inhalation Q4-6H PRN atorvastatin 20 mg PO DAILY 90 days cholecalciferol (vitamin D3) 50 mcg PO DAILY 90 days hydrocortisone acetate 25 mg OK BID PRN losartan 25 mg PO DAILY Tobacco use date assessed: 06/19/23 Dental Screening Dental Screen Date: 06/19/23 Did you have a dental visit in the last 12 months?: Yes Did you have a dental problem in the last 6 months where you did not have access to dental care?: No Was dental information given to patient?: Patient has dentist HPI PE HPI Details Pt is here for a PE. Will order labs. Colon screen is up to date. Due for PSA, will order. Denies dribbling with urination, weak stream, and nocturia. BPs from home are stable. PFSH Medical History Hx of flexible sigmoidoscopy Pain in both hands Pain in both feet History of bladder stone GERD (gastroesophageal reflux disease) TIFFANI (obstructive sleep apnea) Bronchitis Elevated cholesterol Surgical History H/O colonoscopy Hx of eye surgery History of bladder surgery History of prostate surgery History of orchiectomy Hx of appendectomy Family History Brother Substance use disorder Mental health disorder Social History Housing: House Patient Tobacco Use Status: Never used Tobacco e-Cigarette/Vaping Use: Never Used Second Hand Smoke Exposure: No service: No Current occupational status: retired Cognitive needs: No Hearing needs: No Vision needs: Yes Questionnaire PHQ-9 Over the last 2 weeks, how often have you been bothered by any of the following problems? 1. Little interest or pleasure in doing things: not at all 2. Feeling down, depressed, or hopeless: not at all 3. Trouble falling or staying asleep, or sleeping too much: several days 4. Feeling tired or having little energy: several days 5. Poor appetite or overeating: not at all 6. Feeling bad about yourself - or that you are a failure or have let yourself or your family down: not at all 7. Trouble concentrating on things, such as reading the newspaper or watching television: not at all 8. Moving or speaking so slowly that other people could have noticed. Or the opposite - being so fidgety or restless that you have been moving around a lot more than usual: not at all 9. Thoughts that you would be better off or of hurting yourself in some way: not at all Total score: 2 Depression Screening Interpretation: Negative 04801 - PHQ-9 Billing: Yes Source: Developed by Drs. Jordan Bacon, Kassie Gold, Jose Eduardo Finnegan and colleagues, with an educational libra from [employer]. Thrive Questionnaire Date Thrive assessed: 06/19/23 I am a: Patient What is your living situation today?: I have a steady place to live Within the past 12 months, did the food you bought not last and you didn't have the money to get more?: Never true Within the past 12 months, did you worry whether your food would run out before you got money to buy more?: Never true Do you have trouble paying for medicines?: No Do you have trouble getting transportation to medical appointments?: No Do you have trouble paying your heating and electricity bill?: No Do you have trouble taking care of your child, family member or friend?: No Do you have trouble with day-to-day activities such as bathing, preparing meals, shopping, managing finances, etc.?: No Are you currently unemployed and looking for a job?: No Are you interested in more education?: No Please select the resources that you would like help with: None Currently or been in a relationship where the following occur: no concerns reported AUDIT C Alcohol Use Questionnaire (AUDIT-C) 1. How often do you have a drink containing alcohol?: 4 or more times a week 2. How many drinks containing alcohol do you have on a typical day when you are drinking?: 5 or 6 3. How often do you have six or more drinks on one occasion?: Daily or almost daily Total Score: 10 Score Reviewed/Action Taken: Yes MARIANN-7 AMB Questionnaire MARIANN-7 Date MARIANN - 7 assessed: 06/19/23 Feeling nervous, anxious, or on edge: 0 = Not at all Not being able to stop or control worryin = Not at all Worrying too much about different things: 0 = Not at all Trouble relaxin = Not at all Being so restless that it is hard to sit still: 0 = Not at all Becoming easily annoyed or irritable: 0 = Not at all Feeling afraid as if something awful might happen: 0 = Not at all Total MARIANN-7 score (0-4 normal; 5-9 mild; 10-14 moderate; 15-21 severe): 0 Source: Developed by Drs. Jordan Bacon, Kassie Gold, Jose Eduardo iFnnegan and colleagues, with an educational libra from [employer]. MARIANN-7 Assessment Billing MARIANN-7 Assessment Tool: MARIANN-7 Assessment 64885 Physical exam (Primary Care) Vital Signs: Last Vital Signs Pulse 77 06/19/23 08:55 BP 130/80 06/19/23 08:55 Pulse Ox 97 06/19/23 08:55 Oxygen Delivery Method Room Air 06/19/23 08:55 BMI result Body Mass Index 23.9 Tobacco/Smoking Status: Tobacco use Status Tobacco use date assessed 06/19/23 06/19/23 09:00 Patient Tobacco Use Status Never used Tobacco 06/19/23 09:00 e-Cigarette/Vaping Use Never Used 06/19/23 09:00 PHQ-9: PHQ-9 Score PHQ-9: Total score 2 06/19/23 09:27 Depression Screening Interpretation: Negative Thrive Assessment: Date of Thrive Assessment Date Thrive assessed 06/19/23 06/19/23 09:00 Currently or been in a relationship where the following occur: no concerns reported Const General: cooperative and healthy appearing HENMT Ears: TM's normal bilaterally Throat: Yes posterior oropharynx normal Neck Thyroid: Thyroid normal Lymphatic: no lymphadenopathy noted Resp Auscultation: clear to auscultation bilaterally Cardio Rate: regular rate Rhythm: regular rhythm Heart sounds: S1 normal heart sound present and S2 normal heart sound present GI Auscultation: normal bowel sounds Penis: normal penis Scrotum: testes descended bilaterally (singular testicle) Skin Lesions: no lesions Rashes: no rashes Neuro General: CN's II-XI intact bilaterally Motor exam (neuro): 5/5 motor strength present throughout Extrem Other: left hand fingers 4 and 5 contracted, right hand 4th finger contracted (DC) Psych Appearance: grossly normal Mental Status: mental status grossly normal Speech and movement: Normal speech and movement present Affect: normal affect Thought process: Normal thought process present Thought content: Normal thought content present Insight: Good insight present (Psych) Judgement: Good judgement present (Psych) Assessment and Plan Assessment & Plan (1) Physical exam: Code(s): Z00.00 - Encounter for general adult medical examination without abnormal findings Plan: Labs ordered (2) Dyslipidemia: Code(s): E78.5 - Hyperlipidemia, unspecified Plan: Labs ordered (3) HTN (hypertension): Code(s): I10 - Essential (primary) hypertension Plan: Labs ordered Plan The patient agreed to the use of a medical equipment repairer for this encounter. Scribed for THEE Burton by Angy Cruz medical equipment repairer, on 06/19/2023 at 09:20 EST Orders: Orders Complete Blood Count Auto Diff Today E78.5 - Hyperlipidemia, unspecified, I10 - Essential (primary) hypertension TSH reflex Free T4 Today E78.5 - Hyperlipidemia, unspecified, I10 - Essential (primary) hypertension UA CC w/rflx Micro + Cult Today Z00.00 - Encounter for general adult medical examination without abnormal findings Comprehensive [facility]. Panel Fast Today E78.5 - Hyperlipidemia, unspecified, I10 - Essential (primary) hypertension Lipid Panel 6 Months E78.5 - Hyperlipidemia, unspecified, I10 - Essential (primary) hypertension Medications: New hydrocortisone acetate 25 mg OK BID PRN 24 ea 3RF hemorrhoids Changed From atorvastatin 40 mg PO DAILY 90 tabs 1RF To atorvastatin 20 mg PO DAILY 90 tabs 1RF 90 days Coding Level of Care Code Est Pt Prev Care 40-64y(29401) Diagnoses Physical exam Z00.00 Dyslipidemia E78.5 HTN (hypertension) I10 Additional Codes MARIANN-7 Assessment Billing - MARIANN-7 Assessment Tool: MARIANN-7 Assessment 82075 ([id number])
[2023-06-19 08:55] VITALS: BP 130/80; PULSE 77; O2SAT 97; BMI 23.9
== END 2023-06-19 09:44 | disposition home or self-care (01) ==
PROVIDERS: PCP Nurse Practitioner Family; Visit Provider Nurse Practitioner Family
DX: Z00.00 Encounter for general adult medical examination without abnormal findings (principal); E78.5 Hyperlipidemia, unspecified; I10 Essential (primary) hypertension
CPT/HCPCS: 99396

== ENCOUNTER 2023-07-02 10:20 | Outpatient (REF) | payer OTHER, SELFPAY ==
[2023-07-02 13:04] LABS: MANUAL DIFF FLAG NO
[2023-07-02 13:28] LABS: Appearance Urine Clear; Color Urine Yellow; Glucose Urine UA Negative (Negative); Leukocyte Esterase Urine Small (1+) (Negative); Nitrite Urine Negative (Negative); PH 5.5 (5.0-9.0); Specific Gravity - Urine 1.015 (1.005-1.025); UMIC TRIGGER UACC YES; Urine Blood Negative (Negative); Urine Ketones Negative (Negative); Urine Protein Negative (Neg-Trace)
[2023-07-02 13:29] LABS: Basophils Absolute Auto 0.1 X10*3/uL (0.0-0.2); Basophils Percent Auto 1.1 % (0-2); Eosinophils Absolute Auto 0.2 X10*3/uL (0.0-0.4); Eosinophils Percent Auto 3.1 % (0-4); Hematocrit 41.4 % (42.0-52.0); Hemoglobin 13.8 g/dl (14.0-18.0); Imm Gran Abs Auto 0.01 X10*3/uL (0.00-0.03); Imm Gran Pct Auto 0.2 % (0.0-0.4); Lymphocytes Absolute Auto 2.2 X10*3/uL (1.2-4.9); Lymphocytes Percent Auto 35.1 % (20-40); Mean Corpuscular HGB Conc 33.3 g/dl (31.0-36.0); Mean Platelet Volume 10.2 fL (9.4-12.4); Monocytes Absolute Auto 0.7 X10*3/uL (0.1-1.2); Monocytes Percent Auto 10.6 % (2-11); Neutrophils Absolute Auto 3.1 x10*3/uL (2.0-8.3); Neutrophils Percent Auto 49.9 % (45-73); Platelet Count 243 X10*3/uL (160-400); Red Cell Distribution Width 12.4 % (11.0-16.0); White Blood Count 6.1 X10*3/uL (4.8-10.8)
[2023-07-02 13:43] LABS: Bacteria Urine None Seen (None Seen); Hyaline Casts Urine 0-2 /LPF (0-2); RBC Urine 0-2 /HPF (0-2); Squamous Epithelial Cell Urine 0-2 /HPF (0-2); UACC Culture Trigger YES; WBC Urine 0-5 /HPF (0-5)
[2023-07-02 13:47] LABS: Alanine Aminotransferase 20 U/L (0-40); Albumin Level 4.6 g/dL (3.5-5.0); Alkaline Phosphatase 70 U/L (39-117); Anion Gap 14 (12-20); Aspartate Amino Transferase 26 U/L (5-37); Bilirubin Total 0.5 mg/dL (0.0-1.0); Blood Urea Nitrogen 8 mg/dL (9-16); Calcium 9.9 mg/dL (8.4-10.2); Carbon Dioxide 26 mmol/L (22-29); Chloride 103 mmol/L (96-108); Estimated Glomerular Filt Rate > 60; Glucose Fasting 98 mg/dL (60-99); Potassium 4.2 mmol/L (3.3-5.1); Sodium 139 mmol/L (135-145); Total Protein 7.8 g/dL (6.5-8.0)
[2023-07-02 13:57] LABS: Prostate Specific Antigen Scr 1.46 ng/mL (<0.05-4.0)
[2023-07-02 14:02] LABS: TSH reflex Free T4 1.28 uIU/mL (0.32-4.0)
== END 2023-07-02 10:21 | disposition home or self-care (01) ==
LOC: HO.HMGCLDS 10:20
PROVIDERS: PCP Nurse Practitioner Family; Visit Provider Nurse Practitioner Family
DX: Z12.5 Encounter for screening for malignant neoplasm of prostate (principal); I10 Essential (primary) hypertension; E78.5 Hyperlipidemia, unspecified; R82.90 Unspecified abnormal findings in urine
CPT/HCPCS: 36415; 80053; 81001; 84153; 84443; 85025; 87086

== ENCOUNTER 2023-07-18 11:14 | Outpatient (REF) | payer OTHER, SELFPAY ==
[2023-07-18 13:16] LABS: Appearance Urine Clear; Color Urine Yellow; Glucose Urine UA Negative (Negative); Leukocyte Esterase Urine Trace (Negative); Nitrite Urine Negative (Negative); UMIC TRIGGER UACC YES; Urine Blood Negative (Negative); Urine Ketones Negative (Negative); Urine Protein Negative (Neg-Trace)
[2023-07-18 13:19] LABS: Bacteria Urine None Seen (None Seen); Hyaline Casts Urine 0-2 /LPF (0-2); RBC Urine 0-2 /HPF (0-2); Squamous Epithelial Cell Urine 0-2 /HPF (0-2); WBC Urine 0-5 /HPF (0-5)
[2023-07-18 13:20] LABS: MANUAL DIFF FLAG NO
[2023-07-18 13:30] LABS: Basophils Absolute Auto 0.1 X10*3/uL (0.0-0.2); Basophils Percent Auto 1.4 % (0-2); Eosinophils Absolute Auto 0.2 X10*3/uL (0.0-0.4); Eosinophils Percent Auto 2.4 % (0-4); Hematocrit 44.3 % (42.0-52.0); Hemoglobin 14.9 g/dl (14.0-18.0); Imm Gran Abs Auto 0.02 X10*3/uL (0.00-0.03); Imm Gran Pct Auto 0.3 % (0.0-0.4); Lymphocytes Absolute Auto 2.5 X10*3/uL (1.2-4.9); Lymphocytes Percent Auto 34.6 % (20-40); Mean Corpuscular HGB Conc 33.6 g/dl (31.0-36.0); Mean Corpuscular Hemoglobin 30.2 pg (27.0-33.0); Mean Corpuscular Volume 89.9 fL (80.0-98.0); Mean Platelet Volume 10.2 fL (9.4-12.4); Monocytes Absolute Auto 0.7 X10*3/uL (0.1-1.2); Monocytes Percent Auto 9.7 % (2-11); Neutrophils Absolute Auto 3.7 x10*3/uL (2.0-8.3); Neutrophils Percent Auto 51.6 % (45-73); Platelet Count 224 X10*3/uL (160-400); Red Blood Count 4.93 X10*6/uL (4.60-5.80); Red Cell Distribution Width 12.3 % (11.0-16.0); White Blood Count 7.1 X10*3/uL (4.8-10.8)
[2023-07-18 13:56] LABS: Iron 122 mcg/dL (45-160); Percent Iron Saturation 39 % (15-50); Total Iron Binding Capacity 314 mcg/dL (228-428); Unsaturated Iron Binding 192 ug/dL
[2023-07-18 14:04] LABS: Ferritin 152 ng/mL (20-250)
[2023-07-18 14:18] LABS: Folate 13.3 ng/mL (> or = 4.0); Vitamin B12 253 pg/mL (200-900)
== END 2023-07-18 11:15 | disposition home or self-care (01) ==
LOC: HO.HMGCLDS 11:14
PROVIDERS: PCP Nurse Practitioner Family; Visit Provider Nurse Practitioner Family
DX: D64.9 Anemia, unspecified (principal)
CPT/HCPCS: 36415; 81001; 82607; 82728; 82746; 83540; 85025

== ENCOUNTER 2023-12-19 10:57 | Outpatient (REF) | payer OTHER, SELFPAY ==
[2023-12-19 14:10] LABS: Cholesterol 227 mg/dL (<200); HDL Cholesterol 94 mg/dL (>40); LDL Cholesterol Calculated 118 mg/dL (<100); Triglycerides 76 mg/dL (<150)
== END 2023-12-19 10:58 | disposition home or self-care (01) ==
LOC: HO.HMGCLDS 10:57
PROVIDERS: PCP Nurse Practitioner Family; Visit Provider Nurse Practitioner Family
DX: E78.5 Hyperlipidemia, unspecified (principal); I10 Essential (primary) hypertension
CPT/HCPCS: 36415; 80061

== ENCOUNTER 2024-07-03 10:01 | Outpatient (REF) | payer OTHER, SELFPAY ==
[2024-07-03 13:21] LABS: MANUAL DIFF FLAG NO
[2024-07-03 13:35] LABS: Basophils Absolute Auto 0.1 X10*3/uL (0.0-0.2); Basophils Percent Auto 1.3 % (0-2); Eosinophils Absolute Auto 0.7 X10*3/uL (0.0-0.4); Eosinophils Percent Auto 9.5 % (0-4); Hemoglobin 13.6 g/dl (14.0-18.0); Imm Gran Abs Auto 0.03 X10*3/uL (0.00-0.03); Imm Gran Pct Auto 0.4 % (0.0-0.4); Lymphocytes Absolute Auto 2.3 X10*3/uL (1.2-4.9); Lymphocytes Percent Auto 29.6 % (20-40); Mean Corpuscular HGB Conc 33.2 g/dl (31.0-36.0); Mean Corpuscular Hemoglobin 29.6 pg (27.0-33.0); Mean Corpuscular Volume 89.1 fL (80.0-98.0); Mean Platelet Volume 9.7 fL (9.4-12.4); Monocytes Absolute Auto 0.6 X10*3/uL (0.1-1.2); Monocytes Percent Auto 8.1 % (2-11); Neutrophils Absolute Auto 3.9 x10*3/uL (2.0-8.3); Neutrophils Percent Auto 51.1 % (45-73); Platelet Count 253 X10*3/uL (160-400); Red Cell Distribution Width 12.1 % (11.0-16.0); White Blood Count 7.7 X10*3/uL (4.8-10.8)
[2024-07-03 13:48] LABS: Appearance Urine Clear; Color Urine Yellow; Glucose Urine UA Negative (Negative); Leukocyte Esterase Urine Negative (Negative); Nitrite Urine Negative (Negative); Urine Blood Negative (Negative); Urine Ketones Negative (Negative); Urine Protein Negative (Neg-Trace)
[2024-07-03 14:05] LABS: Alanine Aminotransferase 22 U/L (0-40); Albumin Level 4.4 g/dL (3.5-5.0); Alkaline Phosphatase 91 U/L (39-117); Anion Gap 11 (12-20); Aspartate Amino Transferase 24 U/L (5-37); Bilirubin Total 0.4 mg/dL (0.0-1.0); Blood Urea Nitrogen 9 mg/dL (9-16); Calcium 9.8 mg/dL (8.4-10.2); Carbon Dioxide 28 mmol/L (22-29); Chloride 104 mmol/L (96-108); Cholesterol 223 mg/dL (<200); Estimated Glomerular Filt Rate > 60; Glucose Fasting 93 mg/dL (60-99); HDL Cholesterol 77 mg/dL (>40); LDL Cholesterol Calculated 117 mg/dL (<100); Potassium 4.3 mmol/L (3.3-5.1); Sodium 139 mmol/L (135-145); Total Protein 7.5 g/dL (6.5-8.0); Triglycerides 147 mg/dL (<150)
[2024-07-03 14:16] LABS: Prostate Specific Antigen Scr 0.89 ng/mL (<0.05-4.0)
[2024-07-03 14:20] LABS: TSH reflex Free T4 1.26 uIU/mL (0.32-4.0)
== END 2024-07-03 10:02 | disposition home or self-care (01) ==
LOC: HO.HMGCLDS 10:01
PROVIDERS: PCP Nurse Practitioner Family; Visit Provider Nurse Practitioner Family
DX: Z00.00 Encounter for general adult medical examination without abnormal findings (principal); Z12.5 Encounter for screening for malignant neoplasm of prostate
CPT/HCPCS: 36415; 80053; 80061; 81003; 84153; 84443; 85025

== ENCOUNTER 2024-07-09 10:25 | Outpatient (AMB) | payer OTHER, SELFPAY ==
[2024-07-09 10:49] VITALS: BP 160/98; PULSE 80; O2SAT 97; BMI 24.6
--- NOTE | 2024-07-09 10:49 | A.OFFPC_ITS ---
Vital Signs 07/09/24 10:49 07/09/24 11:20 Height 5 ft 6 in Weight 152 lb 6 oz BMI 24.6 BP 160/98 H 150/90 H Blood Pressure Location Rt brachial Rt brachial Position Sitting Sitting Pulse 80 Pulse Source Pulse Oximeter Pulse Oximetry (%) 97 Intake Visit Reasons: Annual PE Intake Note: pt is here for annual exam Newspaper Library Manager Required: No Accompanied by: Self / Same As Patient Allergies meperidine [From Demerol] Allergy (Severe, Verified 07/09/24 10:50) Vomiting Seasonal Allergies Allergy (Intermediate, Verified 07/09/24 10:50) Itchy Eyes codeine Adverse Reaction (Severe, Verified 07/09/24 10:50) Hallucinations Medication List - Last Reconciled 07/09/24 by THEE Ribeiro albuterol sulfate 90 mcg/actuation 2 inhalations inhalation Q4-6H PRN atorvastatin 20 mg PO DAILY 90 days cholecalciferol (vitamin D3) 50 mcg PO DAILY 90 days ezetimibe 10 mg PO DAILY hydrocortisone acetate 25 mg HI BID PRN losartan 25 mg PO DAILY Tobacco use date assessed: 07/09/24 Fall risk assessment: No Falls in past year Last assessed Fall Risk: 07/09/24 Dental Screening Dental Screen Date: 07/09/24 Did you have a dental visit in the last 12 months?: Yes Did you have a dental problem in the last 6 months where you did not have access to dental care?: No Was dental information given to patient?: Patient has dentist HPI Annual PE HPI Details Pt is here for a PE. Labs were already performed. Colon screen is up to date. PSA is up to date. BPs at home are in the 110s to 120s/70s on average. Pt's cholesterol was elevated. Will start zetia 10mg. Will repeat labs in 2 mon ths. [facility] Medical History Hx of flexible sigmoidoscopy Pain in both hands Pain in both feet History of bladder stone GERD (gastroesophageal reflux disease) TIFFANI (obstructive sleep apnea) Bronchitis Elevated cholesterol Surgical History H/O colonoscopy Hx of eye surgery History of bladder surgery History of prostate surgery History of orchiectomy Hx of appendectomy Family History Brother Substance use disorder Mental health disorder Social History Housing: House Patient Tobacco Use Status: Never used Tobacco e-Cigarette/Vaping Use: Never Used Second Hand Smoke Exposure: No service: No Current occupational status: retired Cognitive needs: No Hearing needs: No Vision needs: Yes Questionnaire PHQ-9 Over the last 2 weeks, how often have you been bothered by any of the following problems? 1. Little interest or pleasure in doing things: not at all 2. Feeling down, depressed, or hopeless: not at all 3. Trouble falling or staying asleep, or sleeping too much: not at all 4. Feeling tired or having little energy: not at all 5. Poor appetite or overeating: not at all 6. Feeling bad about yourself - or that you are a failure or have let yourself or your family down: not at all 7. Trouble concentrating on things, such as reading the newspaper or watching television: not at all 8. Moving or speaking so slowly that other people could have noticed. Or the o pposite - being so fidgety or restless that you have been moving around a lot more than usual: not at all 9. Thoughts that you would be better off or of hurting yourself in some way: not at all Total score: 0 Depression Screening Interpretation: Negative Depression Screening Done: Yes 84092 - PHQ-9 Billing: Yes Source: Developed by Drs. Jordan Bacon, Kassie Gold, Jose Eduardo Finnegan and colleagues, with an educational libra from [employer]. Thrive Questionnaire Date Thrive assessed: 07/09/24 I am a: Patient What is your living situation today?: I have a steady place to live Within the past 12 months, did the food you bought not last and you didn't have the money to get more?: Never true Within the past 12 months, did you worry whether your food would run out before you got money to buy more?: Never true Do you have trouble paying for medicines?: No Do you have trouble getting transportation to medical appointments?: No Do you have trouble paying your heating and electricity bill?: No Do you have trouble taking care of your child, family member or friend?: No Do you have trouble with day-to-day activities such as bathing, preparing meals, shopping, managing finances, etc.?: No Are you currently unemployed and looking for a job?: No Are you interested in more education?: No Please select the resources that you would like help with: None Currently or been in a relationship where the following occur: No concerns reported THRIVE Score: 0 AUDIT C Alcohol Use Questionnaire (AUDIT-C) 1. How often do you have a drink containing alcohol?: 4 or more times a week 2. How many drinks containing alcohol do you have on a typical day when you are drinking?: 5 or 6 3. How often do you have six or more drinks on one occasion?: Daily or almost daily Total Score: 10 Score Reviewed/Action Taken: Yes MARIANN-7 AMB Questionnaire MARIANN-7 Date MARIANN - 7 assessed: 07/09/24 Feeling nervous, anxious, or on edge: 0 = Not at all Not being able to stop or control worryin = Not at all Worrying too much about different things: 0 = Not at all Trouble relaxin = Not at all Being so restless that it is hard to sit still: 0 = Not at all Becoming easily annoyed or irritable: 0 = Not at all Feeling afraid as if something awful might happen: 0 = Not at all Total MARIANN-7 score (0-4 normal; 5-9 mild; 10-14 moderate; 15-21 severe): 0 Source: Developed by Drs. Jordan Bacon, Kassie Gold, Jose Eduardo Finnegan and colleagues, with an educational libra from [employer]. MARIANN-7 Assessment Billing MARIANN-7 Assessment Tool: MARIANN-7 Assessment 50641 Review of Systems Const Denies chills and Denies fever(s) Eyes Denies blurry vision ENT Denies vertigo, Denies dizziness and Denies sore throat Card Denies chest pain at rest, Denies chest pain with activity, Denies diaphoresis, Denies dyspnea and Denies dyspnea on exertion Resp Denies cough, Denies dyspnea, Denies dyspnea on exertion and Denies wheezing GI Denies abdominal pain, Denies melena, Denies hematochezia, Denies constipation, Denies diarrhea and Denies loose stools Denies hematuria Musc Denies numbness and Denies tingling Skin/Breast Denies lesions Neuro Denies vertigo, Denies dizziness, Denies numbness and Denies tingling Psych Denies anxiety, Denies depression, Denies homicidal ideation, Denies suicidal ideation and Denies other (substance abuse) Aller/Immun Denies wheezing Physical exam (Primary Care) Vital Signs: Last Vital Signs Pulse 80 07/09/24 10:49 BP 150/90 H 07/09/24 11:20 Pulse Ox 97 07/09/24 10:49 BMI result Body Mass Index 24.6 Tobacco/Smoking Status: Tobacco use Status Tobacco use date assessed 07/09/24 07/09/24 10:51 Patient Tobacco Use Status Never used Tobacco 07/09/24 10:51 e-Cigarette/Vaping Use Never Used 07/09/24 10:51 PHQ-9: PHQ-9 Score PHQ-9: Total score 0 07/09/24 11:20 Depression Screening Interpretation: Negative Thrive Assessment: Date of Thrive Assessment Date Thrive assessed 07/09/24 07/09/24 10:51 Currently or been in a relationship where the following occur: No concerns reported Const General: cooperative Nutritional Appearance: well nourished Orientation/consciousness: patient oriented x3 HENMT Head: Yes normal to inspection, Yes normocephalic and Yes atraumatic Ears: TM's normal bilaterally Eyes General: appearance normal, both eyes and all related structures Alignment and Position: alignment normal and position normal Neck Neck: Yes normal visual inspection, Yes no lymphadenopathy and Yes supple Resp Effort & Inspection: normal respiratory effort Auscultation: clear to auscultation bilaterally Cardio Rate: regular rate Rhythm: regular rhythm Heart sounds: S1 normal heart sound present, S2 normal heart sound present and no murmurs GI Palpation (GI): Soft to palpation and nontender Auscultation: normal bowel sounds Male General Exam: Yes normal external exam Penis: normal penis Scrotum: scrotum normal and no inguinal hernias Testes: absent testicle on the left and no testicular mass Skin Rashes: no rashes Neuro General: patient oriented x3, moves all extremities, no focal motor deficits and deep tendon reflexes 2+ bilaterally Romberg Test: Negative Extrem Other: Dupuytrens contracture to right 4th finger, left 4th and 5th finger Psych Appearance: grossly normal Mental Status: mental status grossly normal Speech and movement: Normal speech and movement present Affect: normal affect Attitude: cooperative Thought process: Normal thought process present Thought content: Normal thought content present Insight: Good insight present (Psych) Judgement: Good judgement present (Psych) Coding Level of Care Code Est Pt Prev Care 40-64y(09649) Diagnoses Physical exam Z00.00 Dyslipidemia E78.5 Additional Codes MARIANN-7 Assessment Billing - MARIANN-7 Assessment Tool: MARIANN-7 Assessment 15434 ([id number]) Assessment & Plan Assessment & Plan (1) Physical exam: Code(s): Z00.00 - Encounter for general adult medical examination without abnormal findings Category: Medical (2) Dyslipidemia: Code(s): E78.5 - Hyperlipidemia, unspecified Category: Medical Plan: added zetia, repeat lipids in 2 months Plan The patient agreed to the use of a medical imaging director for this encounter. Scribed for THEE Burton by Angy Cruz medical imaging director, on 07/09/2024 at 11:00 EST. Orders: Orders Lipid Panel 2 Months E78.5 - Hyperlipidemia, unspecified, Z00.00 - Encounter for general adult medical examination without abnormal findings Comprehensive [facility]. Panel Fast 2 Months E78.5 - Hyperlipidemia, unspecified, Z00.00 - Encounter for general adult medical examination without abnormal findings Medications: New ezetimibe 10 mg PO DAILY 90 tabs 0RF
[2024-07-09 11:20] VITALS: BP 150/90
== END 2024-07-09 11:29 | disposition home or self-care (01) ==
PROVIDERS: PCP Nurse Practitioner Family; Visit Provider Nurse Practitioner Family
DX: Z00.00 Encounter for general adult medical examination without abnormal findings (principal); E78.5 Hyperlipidemia, unspecified

== ENCOUNTER → 2024-07-09 10:25 | Outpatient (BNVA) | payer OTHER, SELFPAY | PROVIDERS: PCP Nurse Practitioner Family; Visit Provider Nurse Practitioner Family | DX: Z00.00 Encounter for general adult medical examination without abnormal findings (principal); E78.5 Hyperlipidemia, unspecified | CPT/HCPCS: 96127 ==

== ENCOUNTER 2024-09-12 09:39 | Outpatient (REF) | payer OTHER, SELFPAY ==
[2024-09-12 13:31] LABS: Alanine Aminotransferase 32 U/L (0-40); Albumin Level 4.3 g/dL (3.5-5.0); Alkaline Phosphatase 95 U/L (39-117); Anion Gap 10 (12-20); Aspartate Amino Transferase 33 U/L (5-37); Bilirubin Total 0.5 mg/dL (0.0-1.0); Blood Urea Nitrogen 10 mg/dL (9-16); Calcium 9.6 mg/dL (8.4-10.2); Carbon Dioxide 28 mmol/L (22-29); Chloride 105 mmol/L (96-108); Cholesterol 199 mg/dL (<200); Estimated Glomerular Filt Rate > 60; Glucose Fasting 99 mg/dL (60-99); HDL Cholesterol 88 mg/dL (>40); LDL Cholesterol Calculated 95 mg/dL (<100); Potassium 4.3 mmol/L (3.3-5.1); Sodium 139 mmol/L (135-145); Total Protein 7.7 g/dL (6.5-8.0); Triglycerides 83 mg/dL (<150)
== END 2024-09-12 09:40 | disposition home or self-care (01) ==
LOC: HO.HMGCLDS 09:39
PROVIDERS: PCP Nurse Practitioner Family; Visit Provider Nurse Practitioner Family
DX: Z00.00 Encounter for general adult medical examination without abnormal findings (principal); E78.5 Hyperlipidemia, unspecified
CPT/HCPCS: 36415; 80053; 80061

== ENCOUNTER 2025-01-02 09:24 | Outpatient (REF) | payer MEDICARE, SELFPAY ==
[2025-01-02 13:15] LABS: MANUAL DIFF FLAG NO
[2025-01-02 13:21] LABS: Appearance Urine Clear; Color Urine Yellow; Glucose Urine UA Negative (Negative); Leukocyte Esterase Urine Negative (Negative); Nitrite Urine Negative (Negative); Specific Gravity - Urine 1.015 (1.005-1.025); Urine Blood Negative (Negative); Urine Ketones Negative (Negative); Urine Protein Negative (Neg-Trace)
[2025-01-02 13:27] LABS: Basophils Absolute Auto 0.1 X10*3/uL (0.0-0.2); Basophils Percent Auto 1.2 % (0-2); Eosinophils Absolute Auto 0.5 X10*3/uL (0.0-0.4); Eosinophils Percent Auto 6.4 % (0-4); Hematocrit 40.9 % (42.0-52.0); Hemoglobin 13.7 g/dl (14.0-18.0); Imm Gran Abs Auto 0.02 X10*3/uL (0.00-0.03); Imm Gran Pct Auto 0.3 % (0.0-0.4); Lymphocytes Absolute Auto 2.4 X10*3/uL (1.2-4.9); Lymphocytes Percent Auto 30.8 % (20-40); Mean Corpuscular HGB Conc 33.5 g/dl (31.0-36.0); Mean Corpuscular Hemoglobin 29.3 pg (27.0-33.0); Mean Corpuscular Volume 87.4 fL (80.0-98.0); Mean Platelet Volume 9.4 fL (9.4-12.4); Monocytes Absolute Auto 0.7 X10*3/uL (0.1-1.2); Monocytes Percent Auto 9.4 % (2-11); Neutrophils Percent Auto 51.9 % (45-73); Platelet Count 248 X10*3/uL (160-400); Red Blood Count 4.68 X10*6/uL (4.60-5.80); Red Cell Distribution Width 12.4 % (11.0-16.0); White Blood Count 7.7 X10*3/uL (4.8-10.8)
[2025-01-02 14:28] LABS: Alanine Aminotransferase 36 U/L (0-40); Albumin Level 4.3 g/dL (3.5-5.0); Anion Gap 13 (12-20); Aspartate Amino Transferase 38 U/L (5-37); Bilirubin Total 0.5 mg/dL (0.0-1.0); Blood Urea Nitrogen 9 mg/dL (9-16); Calcium 9.6 mg/dL (8.4-10.2); Carbon Dioxide 27 mmol/L (22-29); Chloride 105 mmol/L (96-108); Cholesterol 203 mg/dL (<200); Estimated Glomerular Filt Rate > 60; Glucose Fasting 94 mg/dL (60-99); HDL Cholesterol 70 mg/dL (>40); LDL Cholesterol Calculated 101 mg/dL (<100); Potassium 4.5 mmol/L (3.3-5.1); Sodium 140 mmol/L (135-145); Total Protein 7.7 g/dL (6.5-8.0); Triglycerides 161 mg/dL (<150)
[2025-01-02 14:41] LABS: TSH reflex Free T4 1.71 uIU/mL (0.32-4.0)
[2025-01-02 19:10] LABS: Alkaline Phosphatase 91 U/L (39-117)
== END 2025-01-02 09:25 | disposition home or self-care (01) ==
LOC: HO.HMGCLDS 09:24
PROVIDERS: PCP Nurse Practitioner Family; Visit Provider Nurse Practitioner Family
DX: E78.5 Hyperlipidemia, unspecified (principal)
CPT/HCPCS: 36415; 80053; 80061; 81003; 84443; 85025

== ENCOUNTER 2025-01-08 09:57 | Outpatient (AMB) | payer MEDICARE, SELFPAY ==
--- NOTE | 2025-01-08 10:08 | MHC.PC.OV ---
Vital Signs 01/08/25 10:09 Height 5 ft 6 in Weight 153 lb 4 oz BMI 24.7 BP 138/84 Blood Pressure Location Rt brachial Position Sitting Pulse 80 Pulse Source Pulse Oximeter Pulse Oximetry (%) 97 Oxygen Delivery Method Room Air Intake Visit Reasons: 6 months follow up Intake Note: Pt is here today for 6 month follow up. Allergies meperidine [From Demerol] Allergy (Severe, Verified 01/08/25 10:10) Vomiting Seasonal Allergies Allergy (Intermediate, Verified 01/08/25 10:10) Itchy Eyes codeine Adverse Reaction (Severe, Verified 01/08/25 10:10) Hallucinations Medication List - Last Reconciled 01/08/25 by Jersey Ambriz, FACILITY WORKER- albuterol sulfate 90 mcg/actuation 2 inhalations inhalation Q4-6H PRN atorvastatin 20 mg PO DAILY 90 days cholecalciferol (vitamin D3) 50 mcg PO DAILY 90 days hydrocortisone acetate 25 mg MA BID PRN losartan 25 mg PO DAILY prednisone 50 mg PO DAILY Tobacco use date assessed: 01/08/25 Fall risk assessment: No Falls in past year Last assessed Fall Risk: 01/08/25 Dental Screening Dental Screen Date: 01/08/25 Did you have a dental visit in the last 12 months?: Yes Did you have a dental problem in the last 6 months where you did not have access to dental care?: No Was dental information given to patient?: Patient has dentist HPI 6 months follow up HPI Details Chief Complaint The patient presents with increased joint and leg pain, and ongoing issues with plantar fasciitis. History of Present Illness The patient is a 65-year-old male presenting for a six-month follow-up primarily due to persistent plantar fasciitis and increased joint pain. His hypertension remains well-controlled with documented home measurements provided. The patient describes prolonged joint and leg pain, potentially linked to his existing medication regimen, leading to discontinuation of the specific medication. Despite previous interventions, including podiatric consultation, exercises, physical therapy, and orthopedic inserts, his bilateral plantar fasciitis persists, especially affecting the right side more than the left. After reviewing his conditions, I plan to discontinue the aggravating medication and begin a course of prednisone to address inflammation. Additional follow-up labs will be conducted in two months to provide a clearer view of his health status as he likely increases his physical activities with the changing seasons. elevated liver enzyme, ordering a ABD US and hepatitis screen Social History - No specifics related to social determinants of health discussed in the conversation. Health Maintenance Review of Systems - Musculoskeletal: Reports increased joint and leg pain; denies shortness of breath. -denies any CP, green, blurred vision, dizziness Physical Exam General: Cooperative, healthy appearing, comfortable, no acute distress and well developed Orientation: Patient oriented x3 Limitations: No limitations Head: Normal to inspection Ears: Hearing grossly normal bilaterally Nose: Normal external nose present Face and sinus: Normal facial exam Eyes: Appearance normal, both eyes and all related structures Neck: Normal visual inspection and Yes full ROM Respiratory: Normal respiratory effort and able to speak in complete sentences. Clear to auscultation bilaterally Cardiovascular: Regular rate and rhythm. Normal S1 and S2 GI: Normal to inspection. Soft to palpation and nontender Skin: No rashes or lesions noted Neuro: Patient oriented x3 Extremities: Severe tenderness noted with dorsiflexion of the toes and slight palpation of plantar aspect, especially in the heel region, bilaterally. Results - Labs: Home blood pressure readings provided. Plan I will start a short course of prednisone to address the persistent symptoms of bilateral plantar fasciitis, notably worse on the right side. The atorvastatin dose will remain at 20 mg, with repeat laboratory studies planned in two months. I have decided to discontinue ezetimibe due to reported increased joint pain. The patient will be referred to a molding line assistant for further evaluation. Close monitoring will continue, particularly as physical activity levels are expected to rise with seasonal changes. Discussion Notes I discussed the possibility of discontinuing the current medication responsible for joint pain and emphasized the advantages of initiating prednisone for plantar fasciitis to reduce inflammation and improve mobility. The patient was informed about maintaining the current atorvastatin regimen, with plans to re-evaluate in two months following additional labs. I explained the importance of referral to a molding line assistant for advanced evaluation and potential interventions. The potential impact of increased physical activity on his condition was acknowledged, highlighting the importance of monitoring symptoms, and adapting treatment accordingly in follow-up visits. Patient Instructions - Stop the medication that may be causing joint pain. - Take prescribed prednisone as directed for plantar fasciitis. - Continue current atorvastatin dosing. - Plan for follow-up labs in two months. - Consult with a molding line assistant for further evaluation and treatment of plantar fasciitis. - Monitor symptoms and increase activity as tolerated. [facility] Medical History Hx of flexible sigmoidoscopy Pain in both hands Pain in both feet History of bladder stone GERD (gastroesophageal reflux disease) TIFFANI (obstructive sleep apnea) Bronchitis Elevated cholesterol Surgical History H/O colonoscopy Hx of eye surgery History of bladder surgery History of prostate surgery History of orchiectomy Hx of appendectomy Family History Brother Substance use disorder Mental health disorder Social History Housing: House Patient Tobacco Use Status: Never used Tobacco e-Cigarette/Vaping Use: Never Used Second Hand Smoke Exposure: No service: No Current occupational status: retired Cognitive needs: No Hearing needs: No Vision needs: Yes Questionnaire PHQ-9 Over the last 2 weeks, how often have you been bothered by any of the following problems? 1. Little interest or pleasure in doing things: not at all 2. Feeling down, depressed, or hopeless: not at all 3. Trouble falling or staying asleep, or sleeping too much: not at all 4. Feeling tired or having little energy: not at all 5. Poor appetite or overeating: not at all 6. Feeling bad about yourself - or that you are a failure or have let yourself or your family down: not at all 7. Trouble concentrating on things, such as reading the newspaper or watching television: not at all 8. Moving or speaking so slowly that other people could have noticed. Or the opposite - being so fidgety or restless that you have been moving around a lot more than usual: not at all 9. Thoughts that you would be better off or of hurting yourself in some way: not at all Total score: 0 Depression Screening Interpretation: Negative Depression Screening Done: Yes 50509 - PHQ-9 Billing: Yes Source: Developed by Drs. Jordan Bacon, Kassie Gold, Jose Eduardo Finnegan and colleagues, with an educational libra from [employer]. Thrive Questionnaire Date Thrive assessed: 01/08/25 I am a: Patient What is your living situation today?: I have a steady place to live Within the past 12 months, did the food you bought not last and you didn't have the money to get more?: Never true Within the past 12 months, did you worry whether your food would run out before you got money to buy more?: Never true Do you have trouble paying for medicines?: No Do you have trouble getting transportation to medical appointments?: No Do you have trouble paying your heating and electricity bill?: No Do you have trouble taking care of your child, family member or friend?: No Do you have trouble with day-to-day activities such as bathing, preparing meals, shopping, managing finances, etc.?: No Are you currently unemployed and looking for a job?: No Are you interested in more education?: No Please select the resources that you would like help with: None Currently or been in a relationship where the following occur: No concerns reported THRIVE Score: 0 AUDIT C Alcohol Use Questionnaire (AUDIT-C) 1. How often do you have a drink containing alcohol?: 4 or more times a week 2. How many drinks containing alcohol do you have on a typical day when you are drinking?: 5 or 6 3. How often do you have six or more drinks on one occasion?: Daily or almost daily Total Score: 10 Score Reviewed/Action Taken: Yes MARIANN-7 AMB Questionnaire MARIANN-7 Date MARIANN - 7 assessed: 01/08/25 Feeling nervous, anxious, or on edge: 0 = Not at all Not being able to stop or control worryin = Not at all Worrying too much about different things: 0 = Not at all Trouble relaxin = Not at all Being so restless that it is hard to sit still: 0 = Not at all Becoming easily annoyed or irritable: 0 = Not at all Feeling afraid as if something awful might happen: 0 = Not at all Total MARIANN-7 score (0-4 normal; 5-9 mild; 10-14 moderate; 15-21 severe): 0 Source: Developed by Drs. Jordan Bcaon, Kassie Gold, Jose Eduardo Finnegan and colleagues, with an educational libra from [employer]. MARIANN-7 Assessment Billing MARIANN-7 Assessment Tool: MARIANN-7 Assessment 35347 Physical exam (Primary Care) Vital Signs: Last Vital Signs Pulse 80 01/08/25 10:09 BP 138/84 01/08/25 10:09 Pulse Ox 97 01/08/25 10:09 Oxygen Delivery Method Room Air 01/08/25 10:09 BMI result Body Mass Index 24.7 Tobacco/Smoking Status: Tobacco use Status Tobacco use date assessed 01/08/25 01/08/25 10:11 Patient Tobacco Use Status Never used Tobacco 01/08/25 10:11 e-Cigarette/Vaping Use Never Used 01/08/25 10:11 PHQ-9: PHQ-9 Score PHQ-9: Total score 0 01/08/25 10:11 Depression Screening Interpretation: Negative Thrive Assessment: Date of Thrive Assessment Date Thrive assessed 01/08/25 01/08/25 10:11 Currently or been in a relationship where the following occur: No concerns reported Coding Level of Care Code Est Pt Level 3 (83766) Diagnoses Elevated liver enzymes R74.8 Plantar fasciitis, bilateral M72.2 Dyslipidemia E78.5 HTN (hypertension) I10 Additional Codes MARIANN-7 Assessment Billing - MARIANN-7 Assessment Tool: MARIANN-7 Assessment 94636 ([id number]) PHQ-9 - 58696 - PHQ-9 Billing: Yes ([id number]) Assessment & Plan Assessment & Plan (1) Elevated liver enzymes: Code(s): R74.8 - Abnormal levels of other serum enzymes Category: Medical (2) Plantar fasciitis, bilateral: Code(s): M72.2 - Plantar fascial fibromatosis Category: Medical (3) Dyslipidemia: Code(s): E78.5 - Hyperlipidemia, unspecified Category: Medical (4) HTN (hypertension): Code(s): I10 - Essential (primary) hypertension Category: Medical Plan . Orders: Orders Comprehensive [place]. Panel Fast 2 Months E78.5 - Hyperlipidemia, unspecified US abdomen complete Today R74.8 - Abnormal levels of other serum enzymes Hepatitis A,B,C Profile Today R74.8 - Abnormal levels of other serum enzymes Lipid Panel 2 Months E78.5 - Hyperlipidemia, unspecified Uric Acid 2 Months M72.2 - Plantar fascial fibromatosis Referrals Podiatry Referral M72.2 - Plantar fascial fibromatosis Medications: New prednisone 50 mg PO DAILY 6 tabs 0RF Discontinued ezetimibe Discontinued Reason: Doctor's Order 10 mg PO DAILY 90 tabs 1RF
[2025-01-08 10:09] VITALS: BP 138/84; PULSE 80; O2SAT 97; BMI 24.7
== END 2025-01-08 10:54 | disposition home or self-care (01) ==
PROVIDERS: PCP Nurse Practitioner Family; Visit Provider Nurse Practitioner Family
DX: R74.8 Abnormal levels of other serum enzymes (principal); M72.2 Plantar fascial fibromatosis; E78.5 Hyperlipidemia, unspecified; I10 Essential (primary) hypertension

== ENCOUNTER → 2025-01-08 09:57 | Outpatient (BNVA) | payer OTHER, SELFPAY | PROVIDERS: PCP Nurse Practitioner Family; Visit Provider Nurse Practitioner Family | DX: R74.8 Abnormal levels of other serum enzymes (principal); M72.2 Plantar fascial fibromatosis; E78.5 Hyperlipidemia, unspecified; I10 Essential (primary) hypertension | CPT/HCPCS: 96127; 99212 ==

== ENCOUNTER 2025-03-16 10:16 | Outpatient (REF) | payer MEDICARE, SELFPAY ==
--- NOTE | ~2025-03-16 | US_ITS ---
CLINICAL HISTORY: R74.8 - Abnormal levels of other serum enzymes US abdomen. COMPARISON: None provided. Technique: Real time sonographic imaging, including color-flow imaging, was performed by the fabric pattern grader. Multiple inside technical sales representative static images were saved for review. FINDINGS: The visualized aorta and inferior vena cava are normal caliber. The visualized portions of the pancreas appear normal. The liver has diffuse increased echogenicity. Liver, right lobe size: 15.1 cm, normal. The gallbladder is normal in size. No cholelithiasis or sludge identified. There is a negative sonographic Rodriguez's sign. Gallbladder wall: 1-2 mm, normal. Common bile duct: 6 mm, normal. Right kidney: Cortical medullary differentiation is maintained. Normal color flow by Doppler. No calculus or focal parenchymal abnormality identified. No hydronephrosis. Right kidney length: 10.2 cm Left kidney: Cortical medullary differentiation is maintained. Normal color flow by Doppler. No calculus or focal parenchymal abnormality identified. No hydronephrosis. Left kidney length: 9.9 cm Spleen has normal echogenicity. Small splenule present. Splenic length: 9.2 cm, normal. No free intraperitoneal fluid identified. IMPRESSION: 1. No acute findings. No evidence of cholecystitis or renal obstruction. 2. Hepatic steatosis. This document has been electronically signed by: Nir Henry MD on 03/17/2025 12:57:37
--- OUTSIDE RECORDS SUMMARY | 2025-03-16 10:54 | XMS_ITS | Patient Health Record ---
Author Organization [facility] Address [address] [place] [address] Care Team Providers Care Child Care Giver Name Role Phone Jersey Wilkes Primary Care Provider Jigna Del Toro Unavailable [phone] Allergies Allergen (clinical drug ingredient) Drug/Non Drug Allergy documented on EMR Reaction Allergy Type Onset Date Status Codeine Phosphate Unknown Drug Allergy Active meperidine Demerol vomiting Drug Allergy Active Reason For Referral No Information Medications Medication SIG (Take, Route, Frequency, Duration) Notes Start Date End Date Status Hydrocortisone Acetate 25 MG 1 suppository Rectal Two times a day Not-Taking Atorvastatin Calcium 20 MG 1 tablet Oral ly Once a day Active Night Splint AFO - L1930 as directed 07/12/2020 Active Physical Therapy . . . 2-3x/week; Duration: 3-4 weeks 07/12/2020 Active Social History Tobacco Use: Social History Observation Description Date Details (start date - stop date) Never Smoker NA - NA Tobacco Use/Smoking Question Answer Notes Are you a: nonsmoker Additional Findings: Tobacco Non-User Current no n-smoker Alcohol Screen Question Answer Notes Did you have a drink containing alcohol in the p ast year? Yes Points 0 Interpretation Negative Tobacco use other than smoking: Question Answer Notes Are you an other tobacco user? No Encounters Encounter Location Date Provider Diagnosis [facility] [address] [place] [address] 03/02/2025 Jigna Villegas Plan Of Treatment Pending Test Test Name Order Date X ray : Foot, right 3V 07/12/2020 Next Appt Details Provider Name:Jigna galvan, 05/13/2025 02:00:00 PM, [address] [place], [address], Insurance Providers Payer Name Payer Address Payer Phone Subscriber Number Group Number Insured Name Patient Relationship to Insured Coverage Start Date Coverage End Date Medicare National Govt S[employer] [address] [place] [address] [id number] Tapan Reinoso Self - patient is the insured [facility] [address] [place] [address] [phone] [id number] Tapan Reinoso Self - patient is the insured Medical (General) History Medical History History ICD Code Urinary tract infections Back,Hip,and Knee pain Broken bones Cholesterol Cataracts Lyme disease Chicken pox Surgical History Surgery Date(Month/Year) appendectomy 1984 eye surgery 1994 prostate surgery 03/2019
== END 2025-03-16 10:17 | disposition home or self-care (01) ==
LOC: HO.HMGCX 10:16
PROVIDERS: PCP Nurse Practitioner Family; Visit Provider Nurse Practitioner Family
DX: R74.8 Abnormal levels of other serum enzymes (principal)
CPT/HCPCS: 76700

== ENCOUNTER → 2025-03-16 10:23 | Outpatient (BNV) | payer MEDICARE, SELFPAY | PROVIDERS: PCP Nurse Practitioner Family; Visit Provider Radiology Diagnostic Radiology | DX: K76.0 Fatty (change of) liver, not elsewhere classified (principal) | CPT/HCPCS: 76700 ==

== ENCOUNTER 2025-05-22 09:39 | Outpatient (AMB) | payer MEDICARE, SELFPAY ==
[2025-05-22 09:54] VITALS: BP 134/70; PULSE 91; TEMP 36.8; O2SAT 95; BMI 23.6
--- NOTE | 2025-05-22 09:54 | AM.OFFWIN_ITS ---
Intake Vital Signs 05/22/25 09:54 Height 5 ft 6 in Weight 146 lb BMI 23.6 BP 134/70 Blood Pressure Location Lt brachial Position Sitting Pulse 91 Pulse Source Pulse Oximeter Temp 98.2 F Temp Source Oral Pulse Oximetry (%) 95 Oxygen Delivery Method Room Air Intake Visit Reasons: ep pain in left knee Intake Note: pt presents with left knee pain from a fall a little over 2 weeks ago Patient Tobacco Use Status: Never used Tobacco Allergies meperidine (From Demerol) Allergy (Severe, Verified 05/22/25 09:55) Vomiting Seasonal Allergies Allergy (Intermediate, Verified 05/22/25 09:55) Itchy Eyes codeine Adverse Reaction (Severe, Verified 05/22/25 09:55) Hallucinations Do you need a note to return to daycare/school/sports/work: No HPI HPI Comments History of Present Illness Details History of Present Illness - The patient is a 65-year-old male pres enting with left knee pain following a fall 2 weeks ago - The patient fell hard on his left knee while sprinting after a [place] [employer] [place]. - The incident occurred two weeks ago, a nd the patient has been unable to kneel since then. - The patient reports a healed laceratio n on the knee but suspects a foreign body may be present. - The patient experiences tenderness in the knee Physical Exam General: Cooperative, healthy appearing, comfortable, no acute distress and well developed Orientation: Patient oriented x3 Limitations: Unable to kneel due to left knee pain Head: Normal to inspection Ears: Hearing grossly normal bilaterally Nose: Normal External nose present Face and sinus: Normal facial exam Eyes: Appearance normal, both eyes and all related structures Neck: Normal visual inspection and Yes full ROM Respiratory: Normal respiratory effort and able to speak in complete sentences. Skin: Tenderness noted on the left knee, no rashes or lesions noted Neuro: Patient oriented x3 Extremities: TTP infrapatellar area, no FB palpated, full ROM, no skin changes and normal to inspection otherwise PFSH Medical History (Updated 05/22/25 @ 10:04 by Lillian Stone PA-C) Plantar fibromatosis Hx of flexible sigmoidoscopy Pain in both hands Pain in both feet History of bladder stone GERD (gastroesophageal reflux disease) TIFFANI (obstructive sleep apnea) Bronchitis Elevated cholesterol Surgical History H/O colonoscopy Hx of eye surgery History of bladder surgery History of prostate surgery History of orchiectomy Hx of appendectomy Family History Brother Substance use disorder Mental health disorder Social History Housing: House Patient Tobacco Use Status: Never used Tobacco e-Cigarette/Vaping Use: Never Used Second Hand Smoke Exposure: No service: No Current occupational status: retired Cognitive needs: No Hearing needs: No Vision needs: Yes Review of Systems Const All systems reviewed & are unremarkable except as noted in HPI and below Physical Exam Vital Signs: Last Vital Signs Temp 98.2 F 05/22/25 09:54 Pulse 91 05/22/25 09:54 BP 134/70 05/22/25 09:54 Pulse Ox 95 05/22/25 09:54 Oxygen Delivery Method Room Air 05/22/25 09:54 BMI result Body Mass Index 23.6 Assessment & Plan Assessment & Plan (1) Sensation of foreign body: Code(s): R09.A0 - Foreign body sensation, unspecified Plan: Patient was informed and verbally consented to the use of an ambient scribe for clinic note documentation during this visit. Left Knee Pain 2/2 infrapatellar bursitis vs FB vs both - An x-ray of the left knee is recommended to rule out any foreign body or other underlying issues. - The patient is advised to use ice and ibuprofen to manage pain and inflammation. - Conservative management with ice and ibuprofen is recommended to reduce inflammation. (2) Left anterior knee pain: Code(s): M25.562 - Pain in left knee Plan: as above Orders: Orders XR knee LT 4V Today M25.562 - Pain in left knee, R09.A0 - Foreign body sensation, unspecified Coding Level of Care Code Est Pt Level 4 (42979) Diagnoses Sensation of foreign body R09.A0 Left anterior knee pain M25.562
--- OUTSIDE RECORDS SUMMARY | 2025-05-22 10:23 | XMS_ITS | Patient Health Record ---
[facility] Address [address] [place] [address] Care Team Providers Care Automobile Sales Representative Name Role Phone Jersey Wilkes Primary Care Provider Jerry ArenasMalia murphyine Unavailable [phone] Allergies Allergen (clinical drug ingredient) Drug/Non Drug Allergy documented on EMR Reaction Allergy Type Onset Date Status Codeine Phosphate hallucinations Drug Allergy Active meperidine Demerol vomiting Drug Allergy Active Reason For Referral No Information Medications Medication SIG (Take, Route, Frequency, Duration) Notes Start Date End Date Status Atorvastatin Calcium 20 MG 1 tablet Oral ly Once a day Active Night Splint AFO - L1930 as directed 07/12/2020 Not-Taking Losartan Potassium 25 MG 1 tablet Orally Once a day Active Hydrocortisone Acetate 25 MG 1 suppository Rectal Two times a day Not-Taking Physical Therapy . . . 2-3x/week; Duration: 3-4 weeks 07/12/2020 Not-Taking Social History Tobacco Use: Social History Observation Description Date Details (start date - stop date) Never Smoker NA - NA Tobacco Control (Standard) Question Answer Notes Tobacco use: Nonsmoker Additional Findings: Tobacco non-user Current no nsmoker AUDIT-C (Standard) Question Answer Notes Did you have a drink containing alcohol in the p ast year? No Points 0 Interpretation Negative Problems Problem Type SNOMED Code ICD Code Onset Dates Problem Status W/U Status Risk Notes Problem Plantar fibromatosis (02764023) Plantar fibromatosis (M72.2) Active confirmed Injection performed, bilateral feet Vital Signs Blood pressure diastolic 65 mm Hg 05/13/2025 Height 5ft 6in in 05/13/2025 Blood pressure systolic 126 mm Hg 05/13/2025 Weight 145 lbs 05/13/2025 BMI 23.4 kg/m2 05/13/2025 Encounters Encounter Location Date Provider Diagnosis [address] [address] 05/13/2025 Jigna Villegas Pain in right foot M79.671 ; Plantar fibromatosis M72.2 ; 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 and Pain in left foot M79.672 [facility] [address] [address] 03/02/2025 Jigna Villegas Assessments Encounter Date Diagnosis (ICD Code) Assessment Notes Treatment Notes Treatment Clinical Notes Section Notes 05/13/2025 Pain in right foot (ICD-10 - M79.671) 05/13/2025 Plantar fibromatosis (ICD-10 - M72.2) Injection performed, bilateral feet 05/13/2025 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 (ICD-10 - 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.21) 05/13/2025 Pain in left foot (ICD-10 - M79.672) Plan Of Treatment Pending Test Test Name Order Date X ray : Foot, right 3V 07/12/2020 Next Appt Details Provider Name:Jigna galvan, 07/09/2025 03:45:00 PM, [address] [place] [address], [phone], Insurance Providers Payer Name Payer Address Payer Phone Subscriber Number Group Number Insured Name Patient Relationship to Insured Coverage Start Date Coverage End Date Medicare National Govt Svcs Inc [address] [facility] [place] [address] [id number] Tapan Reinoso Self - patient is the insured 5 [employer] [address] [place] [address] [id number] Tapan Reinoso Self - patient is the insured Medical (General) History Medical History History ICD Code Urinary tract infections Back,Hip,and Knee pain Broken bones Cholesterol Cataracts Lyme disease Chicken pox High Blood Pressure Reflux ( GERD) Surgical History Surgery Date(Month/Year) appendectomy 1984 cataract surgery 1994 prostate surgery 03/2019
== END 2025-05-22 12:15 | disposition home or self-care (01) ==
PROVIDERS: PCP Nurse Practitioner Family; Visit Provider Physician Assistant
DX: R09.A0 Foreign body sensation, unspecified (principal); M25.562 Pain in left knee

== ENCOUNTER 2025-05-22 09:39 | Outpatient (REF) | payer MEDICARE, SELFPAY ==
--- NOTE | ~2025-05-22 | XR_ITS ---
EXAMINATION: XR KNEE, LEFT CLINICAL INFORMATION: R09.A0 - Foreign body sensation, unspecified COMPARISON: None available. TECHNIQUE: Four views of the left knee. FINDINGS: No fracture or joint effusion. Alignment is anatomic. Joint spaces are maintained. No abnormal soft tissue calcification. XR/XR knee LT 4V IMPRESSION: Unremarkable left knee. Electronically signed by: Maykel Cole MD 05/22/2025 10:38 AM EDT
== END 2025-05-22 09:40 | disposition home or self-care (01) ==
LOC: HO.HMGCX 09:39
PROVIDERS: PCP Nurse Practitioner Family; Visit Provider Physician Assistant
DX: M25.562 Pain in left knee (principal); R09.A0 Foreign body sensation, unspecified
CPT/HCPCS: 73564; 99212

== ENCOUNTER → 2025-05-22 10:24 | Outpatient (BNV) | payer MEDICARE, SELFPAY | PROVIDERS: PCP Nurse Practitioner Family; Visit Provider Radiology Diagnostic Radiology | DX: R09.A0 Foreign body sensation, unspecified (principal) | CPT/HCPCS: 73564 ==

== ENCOUNTER 2025-07-02 09:44 | Outpatient (REF) | payer MEDICARE, SELFPAY ==
--- OUTSIDE RECORDS SUMMARY | 2025-07-02 11:19 | XMS_ITS | Patient Health Record ---
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 Injection performed, bilateral feet Vital Signs Blood pressure diastolic 65 mm Hg 05/13/2025 Height 5ft 6in in 05/13/2025 Blood pressure systolic 126 mm Hg 05/13/2025 Weight 145 lbs 05/13/2025 BMI 23.4 kg/m2 05/13/2025 Encounters Encounter Location Date Provider Diagnosis [address] [address] 05/13/2025 Jigna Villegas Pain in right foot M79.671 ; Plantar fibromatosis M72.2 ; 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 and Pain in left foot M79.672 [facility] [address] [address] 03/02/2025 Jigna Villegas Assessments Encounter Date Diagnosis [...] Details Provider Name:Jigna galvan, 07/09/2025 03:45:00 PM, [address] [place] [address], [phone], Insurance Providers Payer Name Payer Address Payer Phone Subscriber Number Group Number Insured Name Patient Relationship to Insured Coverage Start Date Coverage End Date Medicare National [employer] [address] [place] [place] [address] [id number] Tapan Reinoso Self - patient is the insured 5 [employer] [address] [place] [address] [id number] Tapan Reinoso Self - patient is the insured Medical (General) History Medical History History ICD Code Urinary tract infections Back,Hip,and Knee pain Broken bones Cholesterol Cataracts Lyme disease Chicken pox High Blood Pressure Reflux ( GERD) Surgical History Surgery Date(Month/Year) appendectomy 1984 cataract surgery 1994 prostate surgery 03/2019
[2025-07-02 14:05] LABS: Alanine Aminotransferase 25 U/L (0-40); Albumin Level 4.6 g/dL (3.5-5.0); Alkaline Phosphatase 69 U/L (39-117); Anion Gap 12 (12-20); Aspartate Amino Transferase 31 U/L (5-37); Blood Urea Nitrogen 7 mg/dL (9-16); Calcium 9.7 mg/dL (8.4-10.2); Carbon Dioxide 27 mmol/L (22-29); Chloride 105 mmol/L (96-108); Cholesterol 209 mg/dL (<200); Estimated Glomerular Filt Rate > 60; HDL Cholesterol 78 mg/dL (>40); Potassium 4.3 mmol/L (3.3-5.1); Sodium 140 mmol/L (135-145); Total Protein 7.5 g/dL (6.5-8.0); Triglycerides 137 mg/dL (<150); Uric Acid 7.1 mg/dL (3.4-7.0)
[2025-07-03 03:33] LABS: HBS Num1 0.00 mIU/mL (0-7.99); HBc Num1 0.04 S/CO (0.00-0.79); HBsAGNum1 0.40 S/CO (0.00-0.99); Hepatitis A Antibody IgM 0.18 Index (0-0.79); Hepatitis B Surface Antigen Negative (Negative); ~HepC Num1 0.06 S/CO (0.00-0.79); ~Hepatitis A Antibody IgM Nonreactive (Nonreactive); ~Hepatitis B Surface Antibody NONREACTIVE (Nonreactive); ~Hepatitis C Antibody Nonreactive (Nonreactive)
== END 2025-07-02 09:45 | disposition home or self-care (01) ==
LOC: HO.HMGCLDS 09:44
PROVIDERS: PCP Nurse Practitioner Family; Visit Provider Nurse Practitioner Family
DX: Z01.84 Encounter for antibody response examination (principal); M72.2 Plantar fascial fibromatosis; E78.5 Hyperlipidemia, unspecified; R74.8 Abnormal levels of other serum enzymes; Z11.59 Encounter for screening for other viral diseases; Z11.4 Encounter for screening for human immunodeficiency virus [HIV]; Z72.89 Other problems related to lifestyle
CPT/HCPCS: 36415; 80053; 80061; 84550; 86704; 86706; 86709; 86803; 87340

== ENCOUNTER 2025-08-21 09:09 | Outpatient (REF) | payer MEDICARE, SELFPAY ==
[2025-08-21 10:09] LABS: MANUAL DIFF FLAG NO
[2025-08-21 10:24] LABS: Hematocrit 43.3 % (42.0-52.0); Hemoglobin 14.3 g/dl (14.0-18.0); Imm Gran Abs Auto 0.02 X10*3/uL (0.00-0.03); Imm Gran Pct Auto 0.2 % (0.0-0.4); Lymphocytes Absolute Auto 2.4 X10*3/uL (1.2-4.9); Mean Corpuscular HGB Conc 33.0 g/dl (31.0-36.0); Mean Corpuscular Hemoglobin 29.4 pg (27.0-33.0); Mean Corpuscular Volume 88.9 fL (80.0-98.0); NRBC Abs Auto 0.000 X10*3/uL (0.0-0.012); NRBC Pct Auto 0.0 /100WBC (0.0-0.2); Platelet Count 279 X10*3/uL (160-400); Red Blood Count 4.87 X10*6/uL (4.60-5.80); White Blood Count 8.3 X10*3/uL (4.8-10.8)
[2025-08-21 10:28] LABS: Appearance Urine Clear; Glucose Urine UA Negative (Negative); PH 5.5 (5.0-9.0); Specific Gravity - Urine 1.015 (1.005-1.025); UMIC TRIGGER UACC YES
[2025-08-21 11:25] LABS: Alanine Aminotransferase 24 U/L (0-40); Albumin Level 4.8 g/dL (3.5-5.0); Alkaline Phosphatase 88 U/L (39-117); Anion Gap 14 (12-20); Aspartate Amino Transferase 31 U/L (5-37); Blood Urea Nitrogen 9 mg/dL (9-16); Calcium 10.0 mg/dL (8.4-10.2); Carbon Dioxide 28 mmol/L (22-29); Chloride 105 mmol/L (96-108); Cholesterol 245 mg/dL (<200); Estimated Glomerular Filt Rate > 60; HDL Cholesterol 96 mg/dL (>40); Potassium 5.2 mmol/L (3.3-5.1); Sodium 142 mmol/L (135-145); Total Protein 8.1 g/dL (6.5-8.0); Triglycerides 68 mg/dL (<150)
== END 2025-08-21 09:10 | disposition home or self-care (01) ==
LOC: HO.HMGCLDS 09:09
PROVIDERS: PCP Nurse Practitioner Family; Visit Provider Nurse Practitioner Family
DX: Z12.5 Encounter for screening for malignant neoplasm of prostate (principal); I10 Essential (primary) hypertension
CPT/HCPCS: 36415; 80053; 80061; 81001; 84153; 84443; 85025

== ENCOUNTER 2025-08-24 11:03 | Outpatient (REF) | payer MEDICARE, SELFPAY ==
[2025-08-24 14:10] LABS: Alanine Aminotransferase 23 U/L (0-40); Albumin Level 4.7 g/dL (3.5-5.0); Alkaline Phosphatase 89 U/L (39-117); Anion Gap 12 (12-20); Aspartate Amino Transferase 32 U/L (5-37); Blood Urea Nitrogen 7 mg/dL (9-16); Calcium 9.7 mg/dL (8.4-10.2); Carbon Dioxide 28 mmol/L (22-29); Chloride 103 mmol/L (96-108); Estimated Glomerular Filt Rate > 60; Potassium 4.3 mmol/L (3.3-5.1); Sodium 139 mmol/L (135-145); Total Protein 7.7 g/dL (6.5-8.0)
== END 2025-08-24 11:04 | disposition home or self-care (01) ==
LOC: HO.HMGCLDS 11:03
PROVIDERS: PCP Nurse Practitioner Family; Visit Provider Nurse Practitioner Family
DX: E87.5 Hyperkalemia (principal)
CPT/HCPCS: 36415; 80053

== ENCOUNTER 2025-08-27 10:51 | Outpatient (AMB) | payer MEDICARE, SELFPAY ==
[2025-08-27 11:01] VITALS: BP 124/78; PULSE 105; RESP 16; O2SAT 95; BMI 23.6
--- NOTE | 2025-08-27 11:01 | A.OFFPC_ITS ---
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 Accompanied by: Self / Same As Patient Allergies meperidine (From Demerol) Allergy (Severe, Verified 08/27/25 11:10) Vomiting Seasonal Allergies Allergy (Intermediate, Verified 08/27/25 11:10) Itchy Eyes codeine Adverse Reaction (Severe, Verified 08/27/25 11:10) Hallucinations Tobacco use date assessed: 08/27/25 Fall risk assessment: No Falls in past year Last assessed Fall Risk: 08/27/25 Dental Screening Dental Screen Date: 08/27/25 Did you have a dental visit in the last 12 months?: Yes Did you have a dental problem in the last 6 months where you did not have access to dental care?: No Was dental information given to patient?: Patient has dentist [facility] Medical History Plantar fibromatosis Hx of flexible sigmoidoscopy Pain in both hands Pain in both feet History of bladder stone GERD (gastroesophageal reflux disease) TIFFANI (obstructive sleep apnea) Bronchitis Elevated cholesterol Surgical History H/O colonoscopy Hx of eye surgery History of bladder surgery History of prostate surgery History of orchiectomy Hx of appendectomy Family History Brother Substance use disorder Mental health disorder Social History Housing: House Patient Tobacco Use Status: Never used Tobacco e-Cigarette/Vaping Use: Never Used Second Hand Smoke Exposure: No service: No Current occupational status: retired Cognitive needs: No Hearing needs: No Vision needs: Yes Questionnaire PHQ-9 Over the last 2 weeks, how often have you been bothered by any of the following problems? 1. Little interest or pleasure in doing things: not at all 2. Feeling down, depressed, or hopeless: not at all 3. Trouble falling or staying asleep, or sleeping too much: not at all 4. Feeling tired or having little energy: not at all 5. Poor appetite or overeating: not at all 6. Feeling bad about yourself - or that you are a failure or have let yourself or your family down: not at all 7. Trouble concentrating on things, such as reading the newspaper or watching television: not at all 8. Moving or speaking so slowly that other people could have noticed. Or the opposite - being so fidgety or restless that you have been moving around a lot more than usual: not at all 9. Thoughts that you would be better off or of hurting yourself in some way: not at all Total score: 0 Depression Screening Interpretation: Negative Depression Screening Done: Yes 29641 - PHQ-9 Billing: Yes Source: Developed by Drs. Jordan Bacon, Kassie Gold, Jose Eduardo Finnegan and colleagues, with an educational libra from [employer]. Thrive Questionnaire Date Thrive assessed: 01/08/25 I am a: Patient What is your living situation today?: I have a steady place to live Within the past 12 months, did the food you bought not last and you didn't have the money to get more?: Never true Within the past 12 months, did you worry whether your food would run out before you got money to buy more?: Never true Do you have trouble paying for medicines?: No Do you have trouble getting transportation to medical appointments?: No Do you have trouble paying your heating and electricity bill?: No Do you have trouble taking care of your child, family member or friend?: No Do you have trouble with day-to-day activities such as bathing, preparing meals, shopping, managing finances, etc.?: No Are you currently unemployed and looking for a job?: No Are you interested in more education?: No Please select the resources that you would like help with: None Currently or been in a relationship where the following occur: No concerns reported THRIVE Score: 0 MARIANN-7 AMB Questionnaire MARIANN-7 Date MARIANN - 7 assessed: 08/27/25 Feeling nervous, anxious, or on edge: 0 = Not at all Not being able to stop or control worryin = Not at all Worrying too much about different things: 0 = Not at all Trouble relaxin = Not at all Being so restless that it is hard to sit still: 0 = Not at all Becoming easily annoyed or irritable: 0 = Not at all Feeling afraid as if something awful might happen: 0 = Not at all Total MARIANN-7 score (0-4 normal; 5-9 mild; 10-14 moderate; 15-21 severe): 0 Source: Developed by Drs. Jordan Bacon, Kassie Gold, Jose Eduardo Finnegan and colleagues, with an educational libra from [employer]. MARIANN-7 Assessment Billing MARIANN-7 Assessment Tool: MARIANN-7 Assessment 44994 Physical exam (Primary Care) Tobacco/Smoking Status: Tobacco use Status Tobacco use date assessed 01/08/25 01/08/25 10:11 Patient Tobacco Use Status Never used Tobacco 05/22/25 09:56 e-Cigarette/Vaping Use Never Used 01/08/25 10:11 Depression Screening Interpretation: Negative Thrive Assessment: Date of Thrive Assessment Date Thrive assessed 01/08/25 08/20/25 11:57 Currently or been in a relationship where the following occur: No concerns reported Coding Additional Codes PHQ-9 - 29934 - PHQ-9 Billing: Yes ([id number]) MARIANN-7 Assessment Billing - MARIANN-7 Assessment Tool: MARIANN-7 Assessment 48812 ([id number])
--- NOTE | 2025-08-27 11:29 | AM.OFFVISMDC ---
Intake Vital Signs 08/27/25 11:01 Height 5 ft 6 in Weight 146 lb BMI 23.6 BP 124/78 Blood Pressure Location Lt brachial Position Sitting Respiration 16 Pulse 105 H Pulse Source Pulse Oximeter Pulse Oximetry (%) 95 Oxygen Delivery Method Room Air Intake Visit Reasons: AWV G0438 Allergies meperidine (From Demerol) Allergy (Severe, Verified 08/27/25 11:10) Vomiting Seasonal Allergies Allergy (Intermediate, Verified 08/27/25 11:10) Itchy Eyes codeine Adverse Reaction (Severe, Verified 08/27/25 11:10) Hallucinations HPI AWV G0438 HPI Details AWV: ppp and ccc in scan pile HPI Comments History of Present Illness Details Chief Complaint The patient presents with increased joint and leg pain, and ongoing issues with plantar fasciitis. History of Present Illness The patient is a 65-year-old male presenting for a six-month follow-up primarily due to persistent plantar fasciitis and increased joint pain. His hypertension remains well-controlled with documented home measurements provided. The patient describes prolonged joint and leg pain, potentially linked to his existing medication regimen, leading to discontinuation of the specific medication. Despite previous interventions, including podiatric consultation, exercises, physical therapy, and orthopedic inserts, his bilateral plantar fasciitis persists, especially affecting the right side more than the left. After reviewing his conditions, I plan to discontinue the aggravating medication and begin a course of prednisone to address inflammation. Additional follow-up labs will be conducted in two months to provide a clearer view of his health status as he likely increases his physical activities with the changing seasons. Social History - No specifics related to social determinants of health discussed in the conversation. Health Maintenance Review of Systems - Musculoskeletal: Reports increased joint and leg pain; denies shortness of breath. -denies any CP, green, blurred vision, dizziness -denies any fevers, chills, N/V Results - Labs: Home blood pressure readings provided. Plan I will start a short course of prednisone to address the persistent symptoms of bilateral plantar fasciitis, notably worse on the right side. The atorvastatin dose will remain at 20 mg, with repeat laboratory studies planned in two months. I have decided to discontinue ezetimibe due to reported increased joint pain. The patient will be referred to a lead level designer for further evaluation. Close monitoring will continue, particularly as physical activity levels are expected to rise with seasonal changes. Discussion Notes I discussed the possibility of discontinuing the current medication responsible for joint pain and emphasized the advantages of initiating prednisone for plantar fasciitis to reduce inflammation and improve mobility. The patient was informed about maintaining the current atorvastatin regimen, with plans to re-evaluate in two months following additional labs. I explained the importance of referral to a lead level designer for advanced evaluation and potential interventions. The potential impact of increased physical activity on his condition was acknowledged, highlighting the importance of monitoring symptoms, and adapting treatment accordingly in follow-up visits. Patient Instructions - Stop the medication that may be causing joint pain. - Take prescribed prednisone as directed for plantar fasciitis. - Continue current atorvastatin dosing. - Plan for follow-up labs in two months. - Consult with a lead level designer for further evaluation and treatment of plantar fasciitis. - Monitor symptoms and increase activity as tolerated. FOR[facility]LY [facility], [facility] Medical History Plantar fibromatosis Hx of flexible sigmoidoscopy Pain in both hands Pain in both feet History of bladder stone GERD (gastroesophageal reflux disease) TIFFANI (obstructive sleep apnea) Bronchitis Elevated cholesterol Surgical History H/O colonoscopy Hx of eye surgery History of bladder surgery History of prostate surgery History of orchiectomy Hx of appendectomy Family History Brother Substance use disorder Mental health disorder Social History Housing: House Patient Tobacco Use Status: Never used Tobacco e-Cigarette/Vaping Use: Never Used Second Hand Smoke Exposure: No service: No Current occupational status: retired Cognitive needs: No Hearing needs: No Vision needs: Yes Questionnaire Medicare Wellness Checkup [age] What gender do you identify with?: male During the past 4 weeks, how much have you been bothered by emotional problems such as feeling anxious, depressed, irritable, sad or downhearted, and blue?: not at all During the past 4 weeks, has your physical & emotional health limited your social activities with family, friends, neighbors, or groups?: not at all During the past 4 weeks, how much bodily pain have you generally had?: mild pain During the past 4 weeks, was someone available to help you if you needed & wanted help?: yes, as much as I wanted During the past 4 weeks, what was the hardest physical activity you could do for at least 2 minutes?: heavy Can you get to places out of walking distance without help? (For eg., can you travel alone on buses, taxis or drive your car?): Yes Can you go shopping for groceries or clothes without someone's help?: Yes Can you prepare your own meals?: Yes Can you do your housework without help?: Yes Because of any health problems, do you need the help of another person with your personal care needs such as eating, bathing, dressing or getting around the house?: No Can you handle your own money without help?: Yes During the past 4 weeks, how would you rate your health in general?: very good During the past 4 weeks how have things been going for you?: pretty well Are you having difficulties driving your car?: no Do you always fasten your seat belt when you are in a car?: yes, usually During past 4 weeks, have you been bothered by the following: never: Falling or dizzy when standing up, Sexual problems?, Trouble eating well?, Teeth or denture problems? and Problems using the telephone? and sometimes: Tiredness or fatigue? Have you fallen 2 or more times in the past year?: No Are you afraid of falling?: No Are you a smoker?: no During the past 4 weeks, how many drinks of wine, beer, or other alcoholic beverages did you have?: 10 or more per week Do you exercise for about 20 minutes 3 or more times a week?: yes, some of the time Have you been given information to help with the following?: no: Hazards in your house that might hurt you? and no: Keeping track of your medications? How often do you have trouble taking medicines the way you have been told to take them?: I always take medicine as prescribed How confident are you that you can control & manage most of your health problems?: very confident What is your race?: White Mini Mental State Exam (MMSE) Orientation What is the (year) (season) (date) (day) (month)?: year, season, date, day and month Where are we (state) (county) (town or city) (hospital) (floor)?: state, county, town or city, hospital/clinic and floor Registration Name of 3 unrelated objects clearly and slowly, then ask patient to repeat all 3 of them. (1st repeat determines score. Make sure they can repeat all three): object 1, object 2 and object 3 Attention & Calculation (CHOOSE ONE) Spell WORLD backwards (DLROW): 4 letters Recall Ask patient to repeat the 3 items from question #3.: object 1, object 2 and object 3 Language Show patient a wristwatch & ask what it is. Repeat for pencil.: watch and pencil Ask the patient to repeat the phrase 'No ifs, ands, or buts' after you.: correct Ask the patient to 'take a piece of paper with their right hand' 'fold paper in half' 'place paper on floor': take paper in right hand, fold paper in half and place paper on floor Print the sentence 'CLOSE YOUR EYES' on a piece. If patient actually closes eyes then score.: followed written direction Give patient a blank piece of paper & ask to write a sentence. Score if it contains a noun & verb.: sentence contains subject and verb Ask patient to copy figure of intersecting pentagons exactly. Score if all 10 angles & 2 intersects are included.: all 10 angles present & 2 are intersected Score Score: 29 Activity of Daily Living Bathing - sponge bath, tub bath or shower: receives no assistance (gets in/out by self, if usual bathing means Dressing - getting clothes from closets & drawers, including inner/outer garments & fasteners.: gets clothes & gets completely dressed without help Toileting - going to the 'toilet room' for urine/bowel elimination & cleaning self/arranging clothes: goes to toilet room, cleans self, arranges clothes without help Transfer: moves in & out of bed and chair without help (may use support object) Continence: controls urination/bowel movements completely by self Feeding: feeds self without help Total Score: 0 Information obtained from: patient Using telephone: independent Traveling: independent Shopping: independent Preparing meals: independent Housework: independent Taking medicine: independent Managing money: independent Physical Exam Vital Signs: Last Vital Signs Pulse 105 H 08/27/25 11:01 Resp 16 12/11/25 11:01 BP 124/78 08/27/25 11:01 Pulse Ox 95 08/27/25 11:01 Oxygen Delivery Method Room Air 08/27/25 11:01 BMI result Body Mass Index 23.6 Neuro Other: able to stand from seated position, neg rhomberg, able to tandem walk, passed whisper test Assessment & Plan Assessment & Plan (1) Encounter for initial annual wellness visit (AWV) in Medicare patient: Code(s): Z00.00 - Encounter for general adult medical examination without abnormal findings (2) HTN (hypertension): Code(s): I10 - Essential (primary) hypertension Plan . Medications: Refilled cholecalciferol (vitamin D3) 50 mcg PO DAILY 90 caps 1RF 90 days Coding Level of Care Code Medicare First (G0438) Est Pt Level 3 (59080) Diagnoses Encounter for initial annual wellness visit (AWV) in Medicare patient Z00.00 HTN (hypertension) I10 CPT Codes Advance Care Planning - Time spent: 1-15 minutes, on File ([id number]) Advance Care Planning Forms completed: Health Care Proxy (in scan pile), MOLST (in scan pile) and Living will (pt is working on this ) Time spent: 1-15 minutes, on File Actual minutes spent: 10
== END 2025-08-27 12:37 | disposition home or self-care (01) ==
LOC: HO.HMCC 10:52
PROVIDERS: PCP Nurse Practitioner Family; Visit Provider Nurse Practitioner Family
DX: Z00.00 Encounter for general adult medical examination without abnormal findings (principal); I10 Essential (primary) hypertension; M72.2 Plantar fascial fibromatosis

== ENCOUNTER → 2025-08-27 10:51 | Outpatient (BNVA) | payer MEDICARE, SELFPAY | PROVIDERS: PCP Nurse Practitioner Family; Visit Provider Nurse Practitioner Family | DX: I10 Essential (primary) hypertension (principal); E78.5 Hyperlipidemia, unspecified; Z71.89 Other specified counseling | CPT/HCPCS: 99212; 99497 ==